=== PATIENT | male | born 1985 | race Hispanic/Latino ===

== ENCOUNTER 2020-05-05 06:23 | Emergency (ER) | payer OTHER, SELFPAY ==
[2020-05-05 06:30] VITALS: BP 164/107; PULSE 116; RESP 18; TEMP 36.6; O2SAT 99; BMI 28.0
[2020-05-05 06:31] VITALS: PULSE 111; O2SAT 99
--- NOTE | 2020-05-05 06:40 | DI.RAD.S_ITS ---
PROCEDURE: XR ANKLE LT MIN 3V INDICATIONS: Pain after injury TECHNIQUE: 3 views of the ankle were acquired. COMPARISON: [facility], , XR FOOT LT MIN 3V, 05/05/2020, 6:43. FINDINGS: Bones: No fractures or dislocations. Ankle mortise is normally aligned. No suspicious bony lesions. Soft tissues: No tibiotalar joint effusion. Achilles tendon appears normal. IMPRESSION: No visualized acute fracture or dislocation. However, if clinical concern and/or pain persist, short interval imaging followup in 7-10 days is recommended, as occult injury cannot be definitively excluded. The above findings are concordant with preliminary report. Dictated by: Emy Rincon M.D. on 05/05/2020 at 10:18 Approved by: Emy Rincon M.D. on 05/05/2020 at 10:18
--- NOTE | 2020-05-05 06:40 | DI.RAD.S_ITS ---
PROCEDURE: XR FOOT LT MIN 3V INDICATIONS: Foot pain after injury TECHNIQUE: 3 views of the foot were acquired. COMPARISON: [facility], CR, XR ANKLE LT MIN 3V, 05/05/2020, 6:43. FINDINGS: Bones: No fractures or dislocations. No suspicious bony lesions. Soft tissues: No tibiotalar joint effusion. Achilles tendon appears normal. IMPRESSION: No visualized acute fracture or dislocation. However, if clinical concern and/or pain persist, short interval imaging followup in 7-10 days is recommended, as occult injury cannot be definitively excluded. The above findings are concordant with preliminary report. Dictated by: Emy Rincon M.D. on 05/05/2020 at 10:17 Approved by: Emy Rincon M.D. on 05/05/2020 at 10:18
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
--- NOTE | 2020-05-05 07:35 | PC.NURSE ---
Patient demonstrated safe ambulation with crutches
[2020-05-05 07:42] VITALS: BP 164/87; PULSE 89; RESP 18
== END 2020-05-05 07:45 | disposition home or self-care (01) ==
PROVIDERS: Emergency Provider Emergency Medicine; Family Provider Family Medicine; PCP Family Medicine
DX: S89.92XA Unspecified injury of left lower leg, initial encounter (principal); V86.55XA Driver of 3- or 4- wheeled all-terrain vehicle (ATV) injured in nontraffic accident, initial encounter
CPT/HCPCS: 73610; 73630; 99283; 99284

== ENCOUNTER → 2020-06-07 13:32 | Outpatient (CLI) | payer OTHER, SELFPAY ==
--- NOTE | 2020-06-07 13:33 | DI.RAD.S_ITS ---
PROCEDURE: XR FOOT LT MIN 3V INDICATIONS: L lateral/ distal foot pain and swelling TECHNIQUE: 3 views of the foot were acquired. COMPARISON: [facility], CR, XR ANKLE LT MIN 3V, 05/05/2020, 6:43. [facility], CR, XR FOOT LT MIN 3V, 05/05/2020, 6:43. FINDINGS: Bones: No fractures or dislocations. No suspicious bony lesions. Incidental note is made of an accessory ossicle, an os peroneum. Soft tissues: No tibiotalar joint effusion. Achilles tendon appears normal. IMPRESSION: Negative left foot plain films. Dictated by: Boris Perez M.D. on 06/07/2020 at 12:45 Approved by: Boris Perez M.D. on 06/07/2020 at 12:45
== END ==
PROVIDERS: Family Provider Family Medicine; PCP Family Medicine; Referring Provider Family Medicine; Visit Provider Nurse Practitioner
DX: M79.672 Pain in left foot (principal)
CPT/HCPCS: 73630

== ENCOUNTER → 2021-05-20 08:57 | Outpatient (CLI) | payer OTHER, SELFPAY ==
[2021-05-20 09:32] LABS: Add Manual Diff / Slide Review NO; Basophils Absolute Auto 100 /uL (0-100); Basophils Percent Auto 1.2 % (0-2); Eosinophils Absolute Auto 100 /uL (0-450); Eosinophils Percent Auto 1.6 % (2-4); Hematocrit 41.9 % (41-53); Hemoglobin 14.1 g/dL (13.5-17.5); Lymphocytes Absolute Auto 1200 /uL (1100-4500); Lymphocytes Percent Auto 21.5 % (25-40); Mean Corpuscular HGB Conc 33.7 % (30-36); Mean Corpuscular Hemoglobin 32.2 PG (26-34); Mean Corpuscular Volume 95.5 fL (80-100); Monocytes Absolute Auto 500 /uL (0-900); Monocytes Percent Auto 8.5 % (3-14); Neutrophils Absolute Auto 3800 /uL (1500-7000); Neutrophils Percent Auto 67.2 % (50-75); Platelet Count 217 X10^3/uL (150-400); Red Blood Cell Count 4.39 X10^6/uL (4.5-5.9); Red Cell Distribution Width 13.3 % (11.6-14.8); White Blood Cell Count 5.6 X10^3/uL (4.5-11.0)
[2021-05-20 10:00] LABS: Alanine Aminotransferase 54 IU/L (<50); Albumin 4.4 g/dL (3.5-5.0); Albumin Globulin Ratio 1.7 (1.0-2.8); Alkaline Phosphatase 92 U/L (38-126); Aspartate Aminotransferase 122 IU/L (17-59); BUN Creatinine Ratio 13.1 (6-22); Bilirubin Total 1.1 mg/dL (0.2-1.3); Blood Urea Nitrogen 13 mg/dL (9-20); Calcium 9.7 mg/dL (8.4-10.2); Carbon Dioxide 27 mmol/L (22-32); Chloride 96 mmol/L (98-107); Cholesterol 262 mg/dL (140-199); Estimated Glomerular Filt Rate > 60.0 mL/min (>60); Globulin 2.6 g/dL (1.7-4.1); Glucose 128 mg/dL (70-100); HDL Cholesterol 72 mg/dL (40-60); HEMOLYSIS < 15 (0-50); Sodium 134 mmol/L (137-145); Uric Acid 9.1 mg/dL (3.5-8.5)
[2021-05-20 10:09] LABS: Triglycerides 560 mg/dL (35-150)
[2021-05-20 10:27] LABS: TSH w/ Reflex to FT4 2.41 uIU/mL (0.47-4.68)
[2021-05-20 11:26] LABS: Hemoglobin A1C% w Est Avg Glu 5.1 % (4.0-6.0)
== END ==
PROVIDERS: Family Provider Family Medicine; PCP Family Medicine; Referring Provider Family Medicine; Visit Provider Family Medicine
DX: E78.1 Pure hyperglyceridemia (principal); R53.83 Other fatigue; R73.03 Prediabetes; Z83.3 Family history of diabetes mellitus; E66.3 Overweight; I10 Essential (primary) hypertension; M10.9 Gout, unspecified; R73.01 Impaired fasting glucose
CPT/HCPCS: 36415; 80053; 80061; 83036; 84443; 84550; 85025

== ENCOUNTER → 2021-07-29 07:45 | Outpatient (CLI) | payer OTHER, SELFPAY ==
--- NOTE | 2021-07-29 07:47 | DI.RAD.S_ITS ---
PROCEDURE: XR FOOT RT MIN 3V INDICATIONS: foot injury TECHNIQUE: 3 views of the foot were acquired. COMPARISON: [facility], CR, XR FOOT LT MIN 3V, 06/07/2020, 13:24. FINDINGS: Bones: No fractures or dislocations. No suspicious bony lesions. Soft tissues: No tibiotalar joint effusion. Achilles tendon appears normal. IMPRESSION: No gross acute right foot fracture or dislocation. Dictated by: Sergio Starks M.D. on 07/29/2021 at 8:07 Approved by: Sergio Starks M.D. on 07/29/2021 at 8:08
--- NOTE | 2021-07-29 07:47 | DI.RAD.S_ITS ---
PROCEDURE: XR ANKLE RT MIN 3V INDICATIONS: foot injury TECHNIQUE: 3 views of the ankle were acquired. COMPARISON: [facility], CR, XR ANKLE LT MIN 3V, 05/05/2020, 6:43. FINDINGS: Bones: Tiny avulsion injury involving tip of medial malleolus is seen with small calcified fragment. No other fracture or dislocation is noted.. Ankle mortise is normally aligned. No suspicious bony lesions. Soft tissues: No tibiotalar joint effusion. Achilles tendon appears normal. IMPRESSION: Acute appearing tiny avulsion injury involving tip of medial malleolus. Intact ankle mortise. Dictated by: Sergio Starks M.D. on 07/29/2021 at 8:06 Approved by: Sergio Starks M.D. on 07/29/2021 at 8:07
== END ==
PROVIDERS: Family Provider Family Medicine; PCP Family Medicine; Referring Provider Nurse Practitioner Family; Visit Provider Nurse Practitioner Family
DX: S99.911A Unspecified injury of right ankle, initial encounter (principal); S99.921A Unspecified injury of right foot, initial encounter; X58.XXXA Exposure to other specified factors, initial encounter
CPT/HCPCS: 73610; 73630

== ENCOUNTER → 2021-10-22 10:45 | Outpatient (CLI) | payer OTHER, SELFPAY ==
[2021-10-22 11:09] LABS: COVID19 -Nasal RAPID Negative (Negative)
== END ==
PROVIDERS: Family Provider Family Medicine; PCP Family Medicine; Visit Provider Family Medicine
DX: Z20.822 Contact with and (suspected) exposure to COVID-19 (principal); R05.9 Cough, unspecified
CPT/HCPCS: 87635

== ENCOUNTER 2023-01-03 21:39 | Emergency (ER) | payer OTHER, SELFPAY ==
[2023-01-03 21:44] VITALS: BP 114/58; PULSE 112; RESP 16; TEMP 36.3; O2SAT 97; BMI 28.8
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
[2023-01-03 22:00] VITALS: BP 118/66; PULSE 106; O2SAT 95
[2023-01-03 22:30] VITALS: PULSE 104; O2SAT 95
--- NOTE | 2023-01-03 22:49 | DI.RAD.S_ITS ---
PROCEDURE: XR WRIST LT MIN 3V INDICATIONS: pain s/p trauma TECHNIQUE: 4 views of the wrist were acquired. COMPARISON: None. FINDINGS: Bones: Minimally displaced intra-articular fracture of the radial styloid is seen. Osseous structures are otherwise intact. No suspicious bony lesions. Scaphoid view: Intact scaphoid. Soft tissues: No suspicious soft tissue calcifications. IMPRESSION: Minimally displaced intra-articular fracture of the radial styloid. Approved by: Rafita Abarca M.D. on 01/03/2023 at 23:31
[2023-01-03 23:00] VITALS: PULSE 103; O2SAT 98
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
[2023-01-03 23:30] VITALS: PULSE 107; O2SAT 95
[2023-01-03] MEDS: HYDROCODONE/ACET 5/325 TABLET 2 TAB PO (23:37)
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
[2023-01-04] VITALS: PULSE 107; O2SAT 97
--- NOTE | 2023-01-04 00:13 | PC.NURSE ---
[place] collar placed
[2023-01-04 00:43] VITALS: PULSE 107; O2SAT 97
[2023-01-04 01:00] VITALS: PULSE 110; O2SAT 95
[2023-01-04] MEDS: HYDROMORPHONE 1 MG INJ IM (01:04)
[2023-01-04 01:30] VITALS: PULSE 110; O2SAT 95
[2023-01-04] MEDS: HYDROCODONE/ACET 5/325 PREPACK 1 BOTTLE MISC (01:30)
[2023-01-04] MEDS: ONDANSETRON 4 MG ODT PREPACK 1 BOTTLE MISC (01:30)
[2023-01-04] MEDS: ONDANSETRON 4 MG ODT SL ×2 (01:30)
[2023-01-04 01:50] VITALS: BP 118/65; PULSE 110; O2SAT 95
== END 2023-01-04 01:59 | disposition home or self-care (01) ==
PROVIDERS: Emergency Provider Emergency Medicine; Family Provider Family Medicine; PCP Family Medicine
DX: S12.9XXA Fracture of neck, unspecified, initial encounter (principal); S52.512A Displaced fracture of left radial styloid process, initial encounter for closed fracture; V29.99XA Rider (driver) (passenger) of other motorcycle injured in unspecified traffic accident, initial encounter
CPT/HCPCS: 29125; 70450; 71045; 72070; 72100; 72125; 73110; 96372; 99284; J1170

== ENCOUNTER → 2023-03-08 09:30 | Outpatient (CLI) | payer OTHER, SELFPAY ==
[2023-03-08 12:23] LABS: Hematocrit 37.6 % (41-53); Hemoglobin 13.1 g/dL (13.5-17.5); Mean Corpuscular HGB Conc 34.8 % (30-36); Mean Corpuscular Hemoglobin 32.9 PG (26-34); Mean Corpuscular Volume 94.6 fL (80-100); Platelet Count 276 X10^3/uL (150-400); Red Blood Cell Count 3.97 X10^6/uL (4.5-5.9); Red Cell Distribution Width 15.8 % (11.6-14.8); White Blood Cell Count 4.4 X10^3/uL (4.5-11.0)
[2023-03-08 13:05] LABS: Alanine Aminotransferase 43 IU/L (<50); Albumin 4.6 g/dL (3.5-5.0); Albumin Globulin Ratio 1.5 (1.0-2.8); Alkaline Phosphatase 87 U/L (38-126); Aspartate Aminotransferase 49 IU/L (17-59); Bilirubin Total 0.9 mg/dL (0.2-1.3); Blood Urea Nitrogen 13 mg/dL (9-20); Calcium 9.5 mg/dL (8.4-10.2); Carbon Dioxide 21 mmol/L (22-32); Chloride 100 mmol/L (98-107); Cholesterol 297 mg/dL (140-199); Estimated Glomerular Filt Rate > 60 mL/min (>60); Glucose 110 mg/dL (70-100); HDL Cholesterol 59 mg/dL (40-60); HEMOLYSIS < 15 (0-50); Potassium 4.2 mmol/L (3.4-5.1); Sodium 132 mmol/L (137-145); Total Protein 7.6 g/dL (6.3-8.2); Uric Acid 6.8 mg/dL (3.5-8.5)
[2023-03-08 14:12] LABS: Triglycerides 1038 mg/dL (35-150)
[2023-03-08 19:35] LABS: Creatinine Urine Random 106.5 mg/dL
[2023-03-08 19:36] LABS: Microalbumi Creatinin Ratio Ur 13.1 ug/mg CR (<30); Microalbumin Urine Random 1.4 mg/dL (0-1.6)
== END ==
PROVIDERS: Family Provider Family Medicine; PCP Family Medicine; Referring Provider Family Medicine; Visit Provider Family Medicine
DX: E78.2 Mixed hyperlipidemia (principal); I10 Essential (primary) hypertension; M10.9 Gout, unspecified; R73.9 Hyperglycemia, unspecified; R79.89 Other specified abnormal findings of blood chemistry
CPT/HCPCS: 36415; 80053; 80061; 82043; 82570; 84550; 85027

== ENCOUNTER → 2023-03-16 13:54 | Outpatient (CLI) | payer OTHER, SELFPAY ==
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
== END ==
PROVIDERS: Family Provider Family Medicine; PCP Family Medicine; Referring Provider Orthopaedic Surgery Orthopaedic Surgery of the Spine; Visit Provider Orthopaedic Surgery Orthopaedic Surgery of the Spine
DX: S52.515A Nondisplaced fracture of left radial styloid process, initial encounter for closed fracture (principal); X58.XXXA Exposure to other specified factors, initial encounter
CPT/HCPCS: 73200

== ENCOUNTER 2023-04-01 09:19 | Emergency (ER) | payer OTHER, SELFPAY ==
[2023-04-01] VITALS (11 sets, daily range): BP systolic 130–153; BP diastolic 80–93; PULSE 115–132; RESP 13–21; TEMP 36.7; O2SAT 96–100; BMI 28.8
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
--- NOTE | 2023-04-01 09:30 | DI.RAD.S_ITS ---
PROCEDURE: XR CHEST 1V INDICATIONS: chest pain TECHNIQUE: One view of the chest was acquired. COMPARISON: [facility], CR, XR CHEST 1V, 01/03/2023, 22:00. FINDINGS: Surgical changes and devices: None. Lungs and pleura: Lungs are clear. No pleural effusions or pneumothorax. Mediastinum: Mediastinal contours appear normal. Heart size is normal. Bones and chest wall: No suspicious bony lesions. Overlying soft tissues appear unremarkable. IMPRESSION: No acute cardiopulmonary abnormality. Dictated by: Sony Rosa M.D. on 04/01/2023 at 10:20 Approved by: Sony Rosa M.D. on 04/01/2023 at 10:22
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
[2023-04-01] MEDS: SODIUM CHLORIDE 0.9% 1,000 ML 1000 ML IV (09:39)
[2023-04-01 09:49] LABS: Add Manual Diff / Slide Review NO; Basophils Absolute Auto 100 /uL (0-100); Basophils Percent Auto 0.8 % (0-2); Eosinophils Absolute Auto 0 /uL (0-450); Eosinophils Percent Auto 0.4 % (2-4); Hematocrit 37.2 % (41-53); Lymphocytes Absolute Auto 1200 /uL (1100-4500); Lymphocytes Percent Auto 13.2 % (25-40); Mean Corpuscular Volume 97.3 fL (80-100); Monocytes Absolute Auto 500 /uL (0-900); Monocytes Percent Auto 5.7 % (3-14); Neutrophils Absolute Auto 7300 /uL (1500-7000); Neutrophils Percent Auto 79.9 % (50-75); Platelet Count 237 X10^3/uL (150-400); Red Blood Cell Count 3.83 X10^6/uL (4.5-5.9); Red Cell Distribution Width 15.3 % (11.6-14.8); White Blood Cell Count 9.1 X10^3/uL (4.5-11.0)
[2023-04-01 09:50] LABS: INR 0.9 (0.9-1.3); Prothrombin Time 10.1 SECONDS (10.1-12.7)
[2023-04-01 09:53] LABS: D Dimer 1557 ng/ml (<500)
[2023-04-01 09:54] LABS: Alanine Aminotransferase 33 IU/L (<50); Albumin 4.6 g/dL (3.5-5.0); Albumin Globulin Ratio 1.5 (1.0-2.8); Alkaline Phosphatase 85 U/L (38-126); Aspartate Aminotransferase 63 IU/L (17-59); BUN Creatinine Ratio 13.8 (6-22); Bilirubin Total 0.7 mg/dL (0.2-1.3); Blood Urea Nitrogen 16 mg/dL (9-20); Calcium 9.4 mg/dL (8.4-10.2); Carbon Dioxide 22 mmol/L (22-32); Chloride 101 mmol/L (98-107); Creatine Kinase 108 U/L (55-170); Estimated Glomerular Filt Rate > 60 mL/min (>60); Glucose 116 mg/dL (70-100); HEMOLYSIS < 15 (0-50); Lipase 48 U/L (23-300); Magnesium 1.5 mg/dL (1.6-2.3); PTT Partial Thromboplastin Tim 27 SECONDS (26-36); Potassium 3.8 mmol/L (3.4-5.1); Sodium 135 mmol/L (137-145); Total Protein 7.6 g/dL (6.3-8.2)
[2023-04-01 09:55] LABS: Ethanol (ETOH) < 10 mg/dL
--- NOTE | 2023-04-01 09:57 | ED_ITS ---
HPI - General Adult General Chief complaint: Syncope Stated complaint: sent by [facility],R/Leg pain/swell, blacked out T-1 fall Time Seen by Provider: 04/01/23 09:40 Source: patient Mode of arrival: Ambulatory History of Present Illness HPI narrative: 37-year-old male former smoker with history of alcohol abuse, hypertension presents at the request of the walk-in clinic for evaluation of leg pain after a fall. He started feeling shaky, dizzy and lightheaded last night and had a near syncopal episode last night. He does endorse having some alcohol at the time. he denies any significant shortness of breath but does have some retrosternal pain with a deep breath, no radiation of discomfort, no exertional symptoms and no exercise intolerance. Patient denies any runny nose, sore throat or cough. He has no fever or chills. Related Data Previous Rx's Medication Instructions Recorded amitriptyline 50 mg tablet 50 mg PO BEDTIME #90 tabs 03/12/22 lisinopril 10 mg tablet 10 mg PO DAILY #90 tabs 11/05/22 allopurinol 100 mg tablet 100 mg PO DAILY #90 tabs 03/15/23 Allergies Allergy/AdvReac Type Severity Reaction Status Date / Time cat dander [CAT DANDER] Allergy Intermediate eyes Verified 04/01/23 12:02 watery, gets itchy Review of Systems Review of Systems Narrative: GENERAL: Denies chills, fatigue, malaise, fever, sweats. HEENT: Denies sinus pain, ear pain, sore throat, difficulty swallowing, dizziness. RESPIRATORY: see HPI CARDIOVASCULAR: see HPI GASTROINTESTINAL: Denies nausea, vomiting, abdominal pain, diarrhea, constipation, melena. : Denies dysuria, frequency, incontinence, hematuria, urinary retention. MUSCULOSKELETAL: see HPI SKIN: Denies rash, skin lesions, or other NEUROLOGIC: Denies weakness, headache, numbness, change in speech, confusion, seizures, incoordination. PSYCHIATRIC: No concerning psychosocial issues. 12 point review of systems is negative except for those stated above Patient History Medical History Alcohol use disorder Anxiety (05/21/11) Elevated LFTs (~11/04/21) Gout Herpes simplex (06/02/11) Hyperlipidemia, mixed Hypertension Hypertriglyceridemia Family History Grandfather CVA (cerebral infarction) Grandmother Age: 87 Diabetes mellitus Hypertension Social History Smoking Status: Former smoker Tobacco: How many years used: 10 Smokeless tobacco user: other (Nicotine vape (current)) alcohol intake: current (6 drinks per day ) substance use type: marijuana (CBD and low THC ) Smoking Status: Former smoker alcohol intake frequency: 3 or more drinks per day Alcohol type: beer Substance Use Type: does not use Exam Narrative Exam Narrative: GENERAL: [37] year old patient appears stated age. Well-developed patient, in mild distress. HEAD: Atraumatic. Normocephalic. EYES: Pupils equal round and reactive. Extraocular motions intact. No scleral icterus. No injection or drainage. ENT: Nose without bleeding, purulent drainage. Throat without erythema, tonsillar hypertrophy or exudate. Airway patent. NECK: Trachea midline. Non tender CARDIOVASCULAR: tachycardic but regular and rhythm without murmurs, gallops, or rubs. RESPIRATORY: Clear to auscultation. Breath sounds equal bilaterally. No wheezes, rales, or rhonchi. GASTROINTESTINAL: Abdomen soft, non-tender, nondistended. EXTREMITIES: right lower extremity tender to palpate laterally, no significant swelling, redness or warmth, no lymphangitis, no induration, fluctuance, drainageNo edema or joint tenderness. BACK: Nontender without deformity or crepitance. No flank tenderness. NEURO: AOx3. SKIN: No rash or erythema of visible areas Initial Vital Signs Initial Vital Signs: Vital Signs Pulse Rate 132 H 04/01/23 09:24 Pulse Oximetry 97 04/01/23 09:24 Course Orders Ordered: ED Orders 04/01/23 09:30 XR ankle RT min 3V Stat XR chest 1V Stat XR tibia fibula RT 2V Stat 04/01/23 09:31 EKG-12 Lead Stat 04/01/23 09:35 Complete Blood Count AUTO DIFF Stat Comprehensive Metabolic Panel Stat D Dimer Stat Ethanol (ETOH) Stat Lipase Stat Magnesium Stat PTT Partial Thromboplastin Gab Stat Prothrombin Time INR Stat Troponin & CK Cardiac Panel Stat 04/01/23 10:09 CT angio chest PE protocol Stat 04/01/23 10:48 Urine Drug Screen, Rapid Stat Discontinued Medications Acetaminophen (Acetaminophen 325 Mg Tablet) 975 mg PO NOW ONE Stop: 04/01/23 10:55 Last Admin: 04/01/23 11:00 Dose: 975 mg Documented By: VINCENT Sodium Chloride (Normal Saline 0.9%) 1,000 mls @ 1,000 mls/hr IV BOLUS ONE Stop: 04/01/23 10:29 Last Infusion: 04/01/23 10:39 Dose: 0 mls/hr Documented By: Admin: 04/01/23 09:39 Dose: 1,000 mls/hr Documented By: VINCENT Vital Signs Vital signs: Vital Signs - 8 hr 04/01/23 09:27 04/01/23 09:24 04/01/23 09:25 Temperature 98.1 F Pulse Rate 130 H 132 H Respiratory Rate 16 Blood Pressure 137/81 137/81 Pulse Oximetry 99 97 Oxygen Delivery Method Room Air 04/01/23 09:25 04/01/23 09:30 04/01/23 09:30 Temperature Pulse Rate 130 H 128 H Respiratory Rate 21 21 Blood Pressure 134/81 Pulse Oximetry 97 96 Oxygen Delivery Method Room Air 04/01/23 09:45 04/01/23 09:45 04/01/23 10:00 Temperature Pulse Rate 125 H Respiratory Rate 13 Blood Pressure 130/80 135/85 Pulse Oximetry 97 Oxygen Delivery Method 04/01/23 10:00 04/01/23 10:15 04/01/23 10:15 Temperature Pulse Rate 122 H 121 H Respiratory Rate 13 Blood Pressure 135/85 Pulse Oximetry 98 99 Oxygen Delivery Method 04/01/23 10:45 04/01/23 10:45 04/01/23 11:00 Temperature Pulse Rate 123 H Respiratory Rate 20 Blood Pressure 144/90 H 144/93 H Pulse Oximetry 99 Oxygen Delivery Method 04/01/23 11:00 04/01/23 11:15 04/01/23 11:15 Temperature Pulse Rate 120 H 117 H Respiratory Rate 18 17 Blood Pressure 153/87 H Pulse Oximetry 100 100 Oxygen Delivery Method 04/01/23 11:30 04/01/23 11:30 Temperature Pulse Rate 115 H Respiratory Rate 18 Blood Pressure 139/83 Pulse Oximetry 100 Oxygen Delivery Method Room Air Medical Decision Making Lab Data 04/01/23 09:35 04/01/23 09:35 Labs: Lab Results 04/01/23 04/01/23 04/01/23 Range/Units 09:35 09:35 09:35 WBC 9.1 (4.5-11.0) X10^3/uL RBC 3.83 L (4.5-5.9) X10^6/uL Hgb 13.0 L (13.5-17.5) g/dL Hct 37.2 L (41-53) % MCV 97.3 (80-100) fL MCH 34.0 (26-34) PG MCHC 35.0 (30-36) % RDW 15.3 H (11.6-14.8) % Plt Count 237 (150-400) X10^3/uL Neut % (Auto) 79.9 H (50-75) % Lymph % (Auto) 13.2 L (25-40) % [place] % (Auto) 5.7 (3-14) % Eos % (Auto) 0.4 L (2-4) % Baso % (Auto) 0.8 (0-2) % Neut # (Auto) 7300 H (0400-4216) /uL Lymph # (Auto) 1200 (4195-4466) /uL [place] # (Auto) 500 (0-900) /uL Eos # (Auto) 0 (0-450) /uL Baso # (Auto) 100 (0-100) /uL PT 10.1 (10.1-12.7) SECONDS INR 0.9 (0.9-1.3) APTT 27 (26-36) SECONDS D-Dimer (<500) ng/ml Sodium 135 L (137-145) mmol/L Potassium 3.8 (3.4-5.1) mmol/L Chloride 101 (98-107) mmol/L Carbon Dioxide 22 (22-32) mmol/L BUN 16 (9-20) mg/dL Creatinine 1.16 (0.66-1.25) mg/dL Estimated GFR > 60 (>60) mL/min BUN/Creatinine Ratio 13.8 (6-22) Glucose 116 H (70-100) mg/dL Calcium 9.4 (8.4-10.2) mg/dL Magnesium 1.5 L (1.6-2.3) mg/dL Total Bilirubin 0.7 (0.2-1.3) mg/dL AST 63 H (17-59) IU/L ALT 33 (<50) IU/L Alkaline Phosphatase 85 (38-126) U/L Total Creatine Kinase 108 (55-170) U/L Troponin I < 0.012 (0.01-0.034) ng/mL Total Protein 7.6 (6.3-8.2) g/dL Albumin 4.6 (3.5-5.0) g/dL Globulin 3.0 (1.7-4.1) g/dL Albumin/Globulin Ratio 1.5 (1.0-2.8) Lipase 48 (23-300) U/L U Opiates 300ng/mL cut (Negative) Ur Oxycodone Screen (Negative) Urine Methadone Screen (Negative) Ur Barbiturates Screen (Negative) U Tricyclic Antidepress (Negative) Ur Phencyclidine Scrn (Negative) Ur Amphetamines Screen (Negative) U Methamphetamines Scrn (Negative) Ur MDMA Scrn (Ecstasy) (Negative) U Benzodiazepines Scrn (Negative) Urine Cocaine Screen (Negative) U Marijuana (THC) Screen (Negative) Ethyl Alcohol ( - 10) mg/dL 04/01/23 04/01/23 04/01/23 Range/Units 09:35 09:35 10:48 WBC (4.5-11.0) X10^3/uL RBC (4.5-5.9) X10^6/uL Hgb (13.5-17.5) g/dL Hct (41-53) % MCV (80-100) fL MCH (26-34) PG MCHC (30-36) % RDW (11.6-14.8) % Plt Count (150-400) X10^3/uL Neut % (Auto) (50-75) % Lymph % (Auto) (25-40) % [place] % (Auto) (3-14) % Eos % (Auto) (2-4) % Baso % (Auto) (0-2) % Neut # (Auto) (0160-6380) /uL Lymph # (Auto) (4630-0442) /uL [place] # (Auto) (0-900) /uL Eos # (Auto) (0-450) /uL Baso # (Auto) (0-100) /uL PT (10.1-12.7) SECONDS INR (0.9-1.3) APTT (26-36) SECONDS D-Dimer 1557 H (<500) ng/ml Sodium (137-145) mmol/L Potassium (3.4-5.1) mmol/L Chloride (98-107) mmol/L Carbon Dioxide (22-32) mmol/L BUN (9-20) mg/dL Creatinine (0.66-1.25) mg/dL Estimated GFR (>60) mL/min BUN/Creatinine Ratio (6-22) Glucose (70-100) mg/dL Calcium (8.4-10.2) mg/dL Magnesium (1.6-2.3) mg/dL Total Bilirubin (0.2-1.3) mg/dL AST (17-59) IU/L ALT (<50) IU/L Alkaline Phosphatase (38-126) U/L Total Creatine Kinase (55-170) U/L Troponin I (0.01-0.034) ng/mL Total Protein (6.3-8.2) g/dL Albumin (3.5-5.0) g/dL Globulin (1.7-4.1) g/dL Albumin/Globulin Ratio (1.0-2.8) Lipase (23-300) U/L U Opiates 300ng/mL cut Negative (Negative) Ur Oxycodone Screen Negative (Negative) Urine Methadone Screen Negative (Negative) Ur Barbiturates Screen Negative (Negative) U Tricyclic Antidepress Positive H (Negative) Ur Phencyclidine Scrn Negative (Negative) Ur Amphetamines Screen Negative (Negative) U Methamphetamines Scrn Negative (Negative) Ur MDMA Scrn (Ecstasy) Negative (Negative) U Benzodiazepines Scrn Negative (Negative) Urine Cocaine Screen Negative (Negative) U Marijuana (THC) Screen Negative (Negative) Ethyl Alcohol < 10 ( - 10) mg/dL Urine Dip Bedside Urine Glucose Negative Bedside Urine Bilirubin - Negative Bedside Urine Ketone +/- 5 Urine Specific [place] 1.015 Bedside Urine Occult Blood - Negative Bedside Urine pH 6.0 Bedside Urine Protein - Negative Bedside Urine Urobilinogen - Negative Bedside Urine Nitrite - Negative Point of care testing: Urine Dip Bedside Urine Glucose Negative Bedside Urine Bilirubin - Negative Bedside Urine Ketone +/- 5 Urine Specific [place] 1.015 Bedside Urine Occult Blood - Negative Bedside Urine pH 6.0 Bedside Urine Protein - Negative Bedside Urine Urobilinogen - Negative Bedside Urine Nitrite - Negative MDM Narrative Medical decision making narrative: [37] year old patient presents with pleuritic-type chest pain, near-syncope and right leg pain Multiple etiologies for patient's symptoms considered including, but not limited to: [ UTI versus cellulitis versus trauma versus sprain versus strain versus pulmonary embolism versus electrolyte abnormality versus other] Prior Charts reviewed in our EMR Primary Historian: patient Labs reviewed and interpreted by myself: no leukocytosis or left shift, D-dimer significantly elevated, primarily electrolytes, renal function and troponin all within normal Imaging reviewed: tib-fib x-ray without acute findings, CT angiogram without evidence of PE patient stated he had to leave, prior to the completion of the workup, given elevated D-dimer, negative CTA and pain and swelling right lower extremity DVT study would have been preferred, thankfully there is no evidence of a PE, pericardial effusion, patient advised of desire to complete workup, he understands the risks and benefits of his decision and demonstrates capacity to make this decision. He understands that he may return at any point without fear Re percussion Discharge Plan Departure Patient Disposition: Left Against Medical Advice Clinical Impression: Left against medical advice Prescriptions: No Action amitriptyline 50 mg tablet 50 mg PO BEDTIME Qty: 90 3RF allopurinol 100 mg tablet 100 mg PO DAILY Qty: 90 0RF lisinopril 10 mg tablet 10 mg PO DAILY Qty: 90 1RF Stand Alone Forms: Against Medical Advice
[2023-04-01 10:06] LABS: Troponin I < 0.012 ng/mL (0.01-0.034)
--- NOTE | 2023-04-01 10:09 | DI.CT.S_ITS ---
PROCEDURE: CT ANGIO CHEST PE PROTOCOL INDICATIONS: tachycardia, syncope, chest pain, SOB, critical dimer TECHNIQUE: After the administration of intravenous contrast, 2 mm thick sections acquired from the pulmonary apices to the posterior costophrenic angles. 3-dimensional maximum intensity projection (MIP) coronal and sagittal reformats were then acquired through the thorax. For radiation dose reduction, the following was used: automated exposure control, adjustment of mA and/or kV according to patient size. COMPARISON: [facility], CT, CT CERVICAL SPINE WO [facility], 01/03/2023, 22:11. FINDINGS: Image quality: Excellent. Pulmonary arteries: Pulmonary arteries are normal in size, and demonstrate no intraluminal filling defects to suggest central pulmonary embolism. Lungs and pleura: Lungs are clear. No pleural effusions or pneumothorax. Central and peripheral airways are patent. Mediastinum: Heart size is normal, without pericardial effusion. No mediastinal or hilar adenopathy. Thoracic aorta is normal in caliber and enhancement. Esophagus is normal in caliber, without hiatal hernia. Bones and chest wall: Left 1st rib fracture, (4/27), more conspicuous. C7 spinous fracture is again seen, (4/2). No suspicious bony lesions. Thyroid gland is unremarkable. No axillary or supraclavicular adenopathy. Abdomen: Visualized upper abdominal solid organs appear normal in the early arterial phase of enhancement. IMPRESSION: 1. No pulmonary embolism. 2. No acute airspace opacity. 3. Left 1st rib fracture is more conspicuous. C7 spinous process fracture is again seen. Dictated by: Sony Rosa M.D. on 04/01/2023 at 11:04 Approved by: Sony Rosa M.D. on 04/01/2023 at 11:14
[2023-04-01 10:58] LABS: UR Morphine/Opiate cutoff 300 Negative (Negative); Ur Creatinine Normal (Normal); Ur Specific Gravity Normal (Normal); Urine Amphetamines Negative (Negative); Urine Barbiturates Negative (Negative); Urine Benzodiazepines Negative (Negative); Urine Cocaine Negative (Negative); Urine MDMA Negative (Negative); Urine Methadone Negative (Negative); Urine Methamphetamines Negative (Negative); Urine Oxycodone Negative (Negative); Urine Phencyclidine Negative (Negative); Urine Tetrahydrocannabinol Negative (Negative); Urine Tricyclic Antidepressant Positive (Negative); Urine pH Normal (Normal)
[2023-04-01] MEDS: ACETAMINOPHEN 325 MG TABLET 975 MG PO (11:00)
--- NOTE | 2023-04-01 11:38 | PC.NURSE ---
Pt requesting to leave. Dr. Aguilar aware
== END 2023-04-01 11:51 | disposition left against medical advice (07) ==
PROVIDERS: Emergency Provider Emergency Medicine; Family Provider Family Medicine; PCP Family Medicine
DX: R55 Syncope and collapse (principal); R07.89 Other chest pain; M79.604 Pain in right leg; Z79.899 Other long term (current) drug therapy
CPT/HCPCS: 36415; 71045; 71275; 73590; 73610; 80053; 80305; 80320; 81003; 82550; 83690; 83735; 84484; 85025; 85379; 85610; 85730; 93005; 96360; 99284; 99285

== ENCOUNTER 2023-09-28 07:30 | Observation (INO) | payer OTHER, SELFPAY ==
[2023-09-28] VITALS (16 sets, daily range): BP systolic 111–161; BP diastolic 76–100; PULSE 101–120; RESP 12–26; TEMP 36–37.2; O2SAT 96–100; BMI 26.2
--- NOTE | 2023-09-28 07:44 | DI.RAD.S_ITS ---
PROCEDURE: XR CHEST 1V INDICATIONS: chest pain TECHNIQUE: One view of the chest was acquired. COMPARISON: [facility], CR, XR CHEST 1V, 04/01/2023, 9:44. FINDINGS: Surgical changes and devices: None. Lungs and pleura: Lungs are clear. No pleural effusions or pneumothorax. Mediastinum: Mediastinal contours appear normal. Heart size is normal. Bones and chest wall: No suspicious bony lesions. Overlying soft tissues appear unremarkable. IMPRESSION: No acute cardiopulmonary abnormality is seen. Dictated by: Romain Leung M.D. on 09/28/2023 at 8:22 Approved by: Romain Leung M.D. on 09/28/2023 at 8:27
[2023-09-28 08:01] LABS: Add Manual Diff / Slide Review NO; Basophils Absolute Auto 100 /uL (0-100); Basophils Percent Auto 0.8 % (0-2); Eosinophils Absolute Auto 100 /uL (0-450); Hematocrit 39.4 % (41-53); Lymphocytes Absolute Auto 1000 /uL (1100-4500); Lymphocytes Percent Auto 9.2 % (25-40); Mean Corpuscular HGB Conc 35.6 % (30-36); Mean Corpuscular Volume 95.4 fL (80-100); Monocytes Absolute Auto 900 /uL (0-900); Neutrophils Absolute Auto 8300 /uL (1500-7000); Platelet Count 194 X10^3/uL (150-400); Red Blood Cell Count 4.13 X10^6/uL (4.5-5.9); Red Cell Distribution Width 13.4 % (11.6-14.8); White Blood Cell Count 10.4 X10^3/uL (4.5-11.0)
[2023-09-28 08:07] LABS: INR 0.9 (0.9-1.3); Prothrombin Time 10.3 SECONDS (9.4-12.5)
--- NOTE | 2023-09-28 08:08 | ED_ITS ---
HPI - Chest Pain General Chief Complaint: Chest Pain Stated Complaint: upper abd/left side/back pain Time Seen by Provider: 09/28/23 07:52 Source: patient Mode of arrival: Ambulatory Limitations: no limitations History of Present Illness HPI narrative: Patient 38-year-old male history of gout, hypertension presenting today with left-sided abdominal pain ongoing for the last couple of days. He has had significant decreased intake some mild nausea. It does hurt when he moves. He was able to eat a bagel this morning. Currently tachycardic but denies any chest pain or palpitations. He admits to drinking alcohol couple glasses of whiskey nightly. Denies any prior history of withdrawal. He denies any right upper quadrant pain. Related Data Previous Rx's Medication Instructions Recorded prednisone 20 mg tablet 20 mg PO DAILY #15 tabs 07/05/23 amitriptyline 50 mg tablet 50 mg PO ONCE PM #90 tabs 08/03/23 lisinopril 10 mg tablet 10 mg PO DAILY #90 tabs 08/03/23 allopurinol 100 mg tablet 100 mg PO DAILY #90 tabs 09/19/23 colchicine 0.6 mg tablet 0.6 mg PO DAILY #20 tabs 09/19/23 Allergies Allergy/AdvReac Type Severity Reaction Status Date / Time cat dander [CAT DANDER] Allergy Intermediate eyes Verified 04/01/23 12:02 watery, gets itchy Patient History Medical History Elevated LFTs (~11/04/21) Hyperlipidemia, mixed Alcohol use disorder Hypertension Gout Herpes simplex (06/02/11) Hypertriglyceridemia Anxiety (05/21/11) Family History Grandfather CVA (cerebral infarction) Grandmother Age: 87 Diabetes mellitus Hypertension Social History Smoking Status: Former smoker Tobacco: How many years used: 10 Smokeless tobacco user: other (Nicotine vape (current)) alcohol intake: current (6 drinks per day ) substance use type: marijuana (CBD and low THC ) Smoking Status: Former smoker alcohol intake frequency: 3 or more drinks per day Alcohol type: beer Substance Use Type: does not use Exam Initial Vital Signs Initial Vital Signs: Vital Signs Temperature 99 F 09/28/23 07:36 Pulse Rate 120 H 09/28/23 07:36 Respiratory Rate 20 09/28/23 07:36 Blood Pressure 111/80 09/28/23 07:36 Pulse Oximetry 99 09/28/23 07:36 Oxygen Delivery Method Room Air 09/28/23 07:36 GENERAL: Alert 38-year-old male appears mildly uncomfortable and in no acute distress. HEENT: Head atraumatic,EOMI, pupils reactive, face symmetric, moist mucous membranes CARDIOVASCULAR: Regular rate and rhythm without murmurs, rubs or gallops. RESPIRATORY: Breath sounds equal bilaterally, no wheezes rales or rhonchi. ABDOMEN: Soft, minor epigastric pain negative right upper quadrant pain is tender over on the left side EXTREMITIES: Normal range of motion, no clubbing or edema. Neurovascularly intact NEUROLOGICAL: Alert and oriented x4.Normal gait and speech. SKIN: Warm, dry, no laceration, no petechiae, no rashes or lesions. Course Orders Ordered: ED Orders 09/28/23 07:44 XR chest 1V Stat EKG-12 Lead Stat 09/28/23 07:53 Complete Blood Count AUTO DIFF Stat Comprehensive Metabolic Panel Stat Lipase Stat Magnesium Stat PTT Partial Thromboplastin Gab Stat Prothrombin Time INR Stat Troponin & CK Cardiac Panel Stat 09/28/23 08:47 US abdomen limited Stat 09/28/23 11:34 CT abdomen pelvis w con Stat Acetaminophen (Acetaminophen 325 Mg Tablet) 650 mg PO Q6H PRN PRN Reason: Fever/Mild Pain (1-3) Heparin Sodium (Porcine) (Heparin 5,000 Unit/Ml Vial) 5,000 unit SUBCUT BID ALEXEI Hydromorphone HCl (Hydromorphone 0.5 Mg Inj) 0.5 mg IV Q2H PRN PRN Reason: Pain, Severe (7-10) Last Admin: 09/28/23 13:36 Dose: 0.5 mg Documented By: OW Dextrose/Sodium Chloride (Dextrose 5%-0.45% Ns) 1,000 mls @ 100 mls/hr IV CONT ALEXEI POTASSIUM CHLORIDE IN WATER (Potassium Cl 10 Meq/100 Ml Hien) 10 meq in 100 mls @ 100 mls/hr IV Q1H ALEXEI Stop: 09/28/23 17:29 Naloxone HCl (Naloxone 0.4 Mg/Ml Vial) 0.2 mg IV Q2MIN PRN PRN Reason: Opiate Reversal Naloxone HCl (Naloxone 0.4 Mg/Ml Vial) 0.2 mg IV Q2MIN PRN PRN Reason: Opiate Reversal Ondansetron HCl (Ondansetron 4 Mg/2 Ml Inj) 4 mg IV Q8HR PRN PRN Reason: Nausea And Vomiting Last Admin: 09/28/23 13:36 Dose: 4 mg Documented By: OW Discontinued Medications Aspirin (Aspirin 81 Mg Chew Tab) 324 mg PO NOW ONE Stop: 09/28/23 07:45 Last Admin: 09/28/23 08:57 Dose: Not Given Documented By: CTS Hydromorphone HCl (Hydromorphone 1 Mg Inj) 1 mg IV NOW ONE Stop: 09/28/23 10:54 Last Admin: 09/28/23 11:16 Dose: 1 mg Documented By: CTS Sodium Chloride (Normal Saline 0.9%) 1,000 mls @ 1,000 mls/hr IV BOLUS ONE Stop: 09/28/23 09:46 Last Infusion: 09/28/23 10:35 Dose: Infused Documented By: Admin: 09/28/23 09:02 Dose: 1,000 mls/hr Documented By: CTS Sodium Chloride (Normal Saline 0.9%) 1,000 mls @ 1,000 mls/hr IV BOLUS ONE Stop: 09/28/23 11:52 Last Infusion: 09/28/23 12:21 Dose: Infused Documented By: Admin: 09/28/23 11:16 Dose: 1,000 mls/hr Documented By: CTS Ketorolac Tromethamine (Ketorolac 30 Mg/Ml Vial) 15 mg IV NOW ONE Stop: 09/28/23 08:44 Last Admin: 09/28/23 09:02 Dose: 15 mg Documented By: CTS Morphine Sulfate (Morphine 4 Mg/Ml Inj) 4 mg IV NOW ONE Stop: 09/28/23 08:52 Last Admin: 09/28/23 09:02 Dose: 4 mg Documented By: CTS Ondansetron HCl (Ondansetron 4 Mg/2 Ml Inj) 4 mg IV NOW ONE Stop: 09/28/23 08:48 Last Admin: 09/28/23 09:02 Dose: 4 mg Documented By: CTS Pantoprazole Sodium (Pantoprazole 40 Mg Vial) 40 mg IV NOW ONE Stop: 09/28/23 08:44 Last Admin: 09/28/23 09:02 Dose: 40 mg Documented By: CTS Vital Signs Vital signs: Vital Signs - 8 hr 09/28/23 07:36 09/28/23 07:51 09/28/23 07:51 Temperature 99 F Pulse Rate 120 H 115 H Respiratory Rate 20 Blood Pressure 111/80 142/87 H Pulse Oximetry 99 96 Oxygen Delivery Method Room Air 09/28/23 07:54 09/28/23 07:54 09/28/23 08:00 Temperature Pulse Rate 113 H Respiratory Rate 26 H Blood Pressure 132/83 129/84 Pulse Oximetry 98 Oxygen Delivery Method 09/28/23 08:00 09/28/23 08:30 09/28/23 08:30 Temperature Pulse Rate 112 H 111 H Respiratory Rate 19 16 Blood Pressure 126/90 Pulse Oximetry 98 98 Oxygen Delivery Method 09/28/23 09:00 09/28/23 09:00 09/28/23 09:30 Temperature Pulse Rate 111 H Respiratory Rate 14 Blood Pressure 128/87 125/84 Pulse Oximetry 100 Oxygen Delivery Method 09/28/23 09:30 09/28/23 10:00 09/28/23 10:00 Temperature Pulse Rate 104 H 103 H Respiratory Rate 24 22 Blood Pressure 111/82 Pulse Oximetry 100 100 Oxygen Delivery Method 09/28/23 10:30 09/28/23 10:30 09/28/23 11:00 Temperature Pulse Rate 104 H 104 H Respiratory Rate 15 16 Blood Pressure 138/82 135/89 Pulse Oximetry 99 100 Oxygen Delivery Method Room Air 09/28/23 11:30 09/28/23 12:08 09/28/23 13:00 Temperature Pulse Rate 106 H 106 H 110 H Respiratory Rate 12 12 13 Blood Pressure 125/76 127/84 Pulse Oximetry 100 99 99 Oxygen Delivery Method Room Air Room Air Room Air MDM - Chest Pain Lab Data 09/28/23 07:53 09/28/23 07:53 Labs: Lab Results 09/28/23 Range/Units 07:53 WBC 10.4 (4.5-11.0) X10^3/uL RBC 4.13 L (4.5-5.9) X10^6/uL Hgb 14.0 (13.5-17.5) g/dL Hct 39.4 L (41-53) % MCV 95.4 (80-100) fL MCH 34.0 (26-34) PG MCHC 35.6 (30-36) % RDW 13.4 (11.6-14.8) % Plt Count 194 (150-400) X10^3/uL Neut % (Auto) 80.0 H (50-75) % Lymph % (Auto) 9.2 L (25-40) % [place] % (Auto) 9.0 (3-14) % Eos % (Auto) 1.0 L (2-4) % Baso % (Auto) 0.8 (0-2) % Neut # (Auto) 8300 H (6147-1393) /uL Lymph # (Auto) 1000 L (9546-1504) /uL [place] # (Auto) 900 (0-900) /uL Eos # (Auto) 100 (0-450) /uL Baso # (Auto) 100 (0-100) /uL PT 10.3 (9.4-12.5) SECONDS INR 0.9 (0.9-1.3) APTT 29 (25.1-36.5) SECONDS Sodium 132 L (137-145) mmol/L Potassium 3.2 L (3.4-5.1) mmol/L Chloride 91 L (98-107) mmol/L Carbon Dioxide 27 (22-32) mmol/L BUN 12 (9-20) mg/dL Creatinine 1.08 (0.66-1.25) mg/dL Estimated GFR > 60 (>60) mL/min BUN/Creatinine Ratio 11.1 (6-22) Glucose 128 H (70-100) mg/dL Calcium 9.4 (8.4-10.2) mg/dL Magnesium 1.6 (1.6-2.3) mg/dL Total Bilirubin 1.7 H (0.2-1.3) mg/dL AST 87 H (17-59) IU/L ALT 38 (<50) IU/L Alkaline Phosphatase 79 (38-126) U/L Total Creatine Kinase 113 (55-170) U/L Troponin I < 0.012 (0.01-0.034) ng/mL Total Protein 8.1 (6.3-8.2) g/dL Albumin 4.6 (3.5-5.0) g/dL Globulin 3.5 (1.7-4.1) g/dL Albumin/Globulin Ratio 1.3 (1.0-2.8) Lipase 4187 H (23-300) U/L Imaging Data US - abdomen: Radiologist's Impression: ROCEDURE: US ABDOMEN LIMITED INDICATIONS: PANCREATITIS TECHNIQUE: Real-time scanning was performed of the abdominal and retroperitoneal organs, with image documentation. COMPARISON: None. FINDINGS: Liver: Liver is normal in size and demonstrates increased echotexture. There is a 0.6 cm diameter cyst in the left hepatic lobe. Gallbladder: No gallstones. No gallbladder wall thickening, pericholecystic fluid or sonographic Valdivia's sign. Biliary ducts: Intrahepatic bile ducts are non-dilated. Extrahepatic bile duct caliber measures 2.8 mm. Normal is 6-7 mm or less in diameter, or 10 mm or less post-cholecystectomy. Pancreas: Visualized portions of the pancreas are sonographically normal. Miscellaneous: No free abdominal fluid. IMPRESSION: 1. Normal ultrasound appearance of pancreas, which does not exclude pancreatitis. 2. Normal gallbladder. No gallstones. 3. A small hepatic cyst. Dictated by: Romain Leung M.D. on 09/28/2023 at 9:53 CT scan - abdomen/pelvis: Radiologist's Impression: PROCEDURE: CT ABDOMEN PELVIS W CON INDICATIONS: pancreatitis TECHNIQUE: After the administration of intravenous contrast, axial sections acquired from the lung bases to the pubic symphysis. Coronal and sagittal reformats were performed. For radiation dose reduction, the following was used: automated exposure control, adjustment of mA and/or kV according to patient size. COMPARISON: None. FINDINGS: Image quality: Diagnostic. Lower Chest: No significant findings. ABDOMEN: Liver: No solid mass. Gallbladder: No radiopaque gallstones or wall thickening. Biliary ducts: No biliary dilation. Pancreas: No ductal dilation. There is moderate fat stranding surrounding the pancreatic tail. There is a 24 mm region of hypodensity within the superior aspect of the pancreatic tail. Spleen: Size is within normal limits. Adrenal Glands: No adrenal nodules. Kidneys and Ureters: No hydronephrosis. No solid mass. No complex renal cystic lesion which requires follow up. Stomach and Bowel: Stomach and small bowel are within normal limits. Appendix is normal. Colon is nondistended. There is thickening of the splenic flexure of colon as well as the descending colon. Peritoneum: Small amount of fluid within the left anterior para renal space. No free air. Ventral Wall: No significant ventral hernia. Abdominal Nodes: No retroperitoneal or mesenteric adenopathy by size criteria. Vessels: Aorta and inferior vena cava are normal in size. PELVIS: Pelvic Organs: Unremarkable. Bladder: No bladder wall thickening, accounting for underdistention. Pelvic Nodes: No enlarged lymph nodes. Miscellaneous: No inguinal hernias are seen. Bones: No aggressive osseous abnormality. IMPRESSION: 1. Pancreatitis. 2. Possible pancreatic tail mass. Further assessment with nonemergent outpatient follow-up pancreas protocol MRI is recommended for further assessment. 3. Thickening of the left colon, which may be secondary to pancreatitis, with differential considerations also include ischemia, infection, inflammation. Follow-up colonoscopy is recommended to exclude underlying neoplasm. 4. Normal appendix. Dictated by: Bran Jeffers M.D. on 09/28/2023 at 12:42 MDM Narrative Medical decision making narrative: Patient 38-year-old male who presents with left upper abdominal pain. Some nausea no actual vomiting. He remains persistently tachycardic. Blood work reviewed does show pancreatitis with a lipase of 4180, bilirubin minimally elevated at 1.7, AST 87, ALT 38 potassium 3.2 creatinine 1.0 Imaging reviewed ultrasound does not show any cholelithiasis or dilated common bile duct, CT does show acute pancreatitis with questionable pancreatic tail mass Patient received IV fluids pain medications nausea medications still tachycardic and requiring pain meds. Sounds as though he does drink whiskey daily has never gone through DTs before not actively shaking or anxious but may be starting to go through withdrawal. Suspect pancreatitis secondary to alcohol use no evidence of cholelithiasis. Dr. Meraz updated on patient's symptoms and test results accepts patient Discharge Plan Departure Patient Disposition: Admitted As Inpatient Clinical Impression: Acute pancreatitis Admit Date/Time: 09/28/23 13:08 Admit Provider: Ayush Meraz
[2023-09-28 08:10] LABS: PTT Partial Thromboplastin Tim 29 SECONDS (25.1-36.5)
[2023-09-28 08:11] LABS: Alanine Aminotransferase 38 IU/L (<50); Albumin 4.6 g/dL (3.5-5.0); Albumin Globulin Ratio 1.3 (1.0-2.8); Alkaline Phosphatase 79 U/L (38-126); Aspartate Aminotransferase 87 IU/L (17-59); BUN Creatinine Ratio 11.1 (6-22); Bilirubin Total 1.7 mg/dL (0.2-1.3); Blood Urea Nitrogen 12 mg/dL (9-20); Calcium 9.4 mg/dL (8.4-10.2); Carbon Dioxide 27 mmol/L (22-32); Chloride 91 mmol/L (98-107); Creatine Kinase 113 U/L (55-170); Estimated Glomerular Filt Rate > 60 mL/min (>60); Globulin 3.5 g/dL (1.7-4.1); Glucose 128 mg/dL (70-100); HEMOLYSIS < 15 (0-50); Magnesium 1.6 mg/dL (1.6-2.3); Potassium 3.2 mmol/L (3.4-5.1); Sodium 132 mmol/L (137-145); Total Protein 8.1 g/dL (6.3-8.2)
[2023-09-28 08:23] LABS: Troponin I < 0.012 ng/mL (0.01-0.034)
[2023-09-28 08:32] LABS: Lipase 4187 U/L (23-300)
--- NOTE | 2023-09-28 08:47 | DI.US.S_ITS ---
PROCEDURE: US ABDOMEN LIMITED INDICATIONS: PANCREATITIS TECHNIQUE: Real-time scanning was performed of the abdominal and retroperitoneal organs, with image documentation. COMPARISON: None. FINDINGS: Liver: Liver is normal in size and demonstrates increased echotexture. There is a 0.6 cm diameter cyst in the left hepatic lobe. Gallbladder: No gallstones. No gallbladder wall thickening, pericholecystic fluid or sonographic Valdivia's sign. Biliary ducts: Intrahepatic bile ducts are non-dilated. Extrahepatic bile duct caliber measures 2.8 mm. Normal is 6-7 mm or less in diameter, or 10 mm or less post-cholecystectomy. Pancreas: Visualized portions of the pancreas are sonographically normal. Miscellaneous: No free abdominal fluid. IMPRESSION: 1. Normal ultrasound appearance of pancreas, which does not exclude pancreatitis. 2. Normal gallbladder. No gallstones. 3. A small hepatic cyst. Dictated by: Romain Leung M.D. on 09/28/2023 at 9:53 Approved by: Romain Leung M.D. on 09/28/2023 at 9:55
[2023-09-28] MEDS: KETOROLAC 30 MG/ML VIAL 15 MG IV (09:02)
[2023-09-28] MEDS: SODIUM CHLORIDE 0.9% 1,000 ML 1000 ML IV ×2 (09:02→11:16)
[2023-09-28] MEDS: MORPHINE 4 MG/ML INJ IV (09:02)
[2023-09-28] MEDS: PANTOPRAZOLE 40 MG VIAL IV (09:02)
[2023-09-28] MEDS: ONDANSETRON 4 MG/2 ML INJ IV ×2 (09:02→13:36)
[2023-09-28] MEDS: HYDROMORPHONE 1 MG INJ IV (11:16)
--- NOTE | 2023-09-28 11:34 | DI.CT.S_ITS ---
PROCEDURE: CT ABDOMEN PELVIS W CON INDICATIONS: pancreatitis TECHNIQUE: After the administration of intravenous contrast, axial sections acquired from the lung bases to the pubic symphysis. Coronal and sagittal reformats were performed. For radiation dose reduction, the following was used: automated exposure control, adjustment of mA and/or kV according to patient size. COMPARISON: None. FINDINGS: Image quality: Diagnostic. Lower Chest: No significant findings. ABDOMEN: Liver: No solid mass. Gallbladder: No radiopaque gallstones or wall thickening. Biliary ducts: No biliary dilation. Pancreas: No ductal dilation. There is moderate fat stranding surrounding the pancreatic tail. There is a 24 mm region of hypodensity within the superior aspect of the pancreatic tail. Spleen: Size is within normal limits. Adrenal Glands: No adrenal nodules. Kidneys and Ureters: No hydronephrosis. No solid mass. No complex renal cystic lesion which requires follow up. Stomach and Bowel: Stomach and small bowel are within normal limits. Appendix is normal. Colon is nondistended. There is thickening of the splenic flexure of colon as well as the descending colon. Peritoneum: Small amount of fluid within the left anterior para renal space. No free air. Ventral Wall: No significant ventral hernia. Abdominal Nodes: No retroperitoneal or mesenteric adenopathy by size criteria. Vessels: Aorta and inferior vena cava are normal in size. PELVIS: Pelvic Organs: Unremarkable. Bladder: No bladder wall thickening, accounting for underdistention. Pelvic Nodes: No enlarged lymph nodes. Miscellaneous: No inguinal hernias are seen. Bones: No aggressive osseous abnormality. IMPRESSION: 1. Pancreatitis. 2. Possible pancreatic tail mass. Further assessment with nonemergent outpatient follow-up pancreas protocol MRI is recommended for further assessment. 3. Thickening of the left colon, which may be secondary to pancreatitis, with differential considerations also include ischemia, infection, inflammation. Follow-up colonoscopy is recommended to exclude underlying neoplasm. 4. Normal appendix. Dictated by: Bran Jeffers M.D. on 09/28/2023 at 12:42 Approved by: Bran Jeffers M.D. on 09/28/2023 at 12:46
--- NOTE | 2023-09-28 13:16 | PM.HP.1 ---
History of Present Illness History of Present Illness Date Patient Seen: 09/28/23 Chief complaint: upper abd/left side/back pain Narrative: The patient is a 38-year-old male with a history of gout, hypertension, and alcohol abuse who presented to the ED with left-sided abdominal pain today. This has been ongoing for 2-3 days and increasing. He notes that he has had some nausea as well. The pain does seem to increase with positional movements. He would did have something to eat this morning and denies acute exacerbation of the pain. He does drink 2-3 glasses of whiskey at night. He denied any history of alcohol withdrawal symptoms to the emergency physician. In the emergency department his lipase was elevated and there was a concern for pancreatitis. He denies recent diarrhea, or blood per rectum. He has no history of pancreatitis. He was noted to be tachycardic, but normotensive and afebrile in the emergency department. He adds that this has really been going on since about Tuesday or 3-1/2 days. He notes his last drink was probably on Tuesday. He denies a history of shakes or other severe withdrawal symptoms. He drinks 2 or 3 whiskeys a day. He does take routine hypertension medications. He denies any hematemesis, diarrhea or blood per rectum. The pain is most noticeable in the left upper quadrant and radiating to the back. CT scan is consistent with pancreatitis, no necrosis or fluid collections are noted. He does have some inflammation around the left descending colon which may explain his left upper quadrant pain. FORMERLY [facility], [facility]–1983 Medical History Elevated LFTs (~11/04/21) Hyperlipidemia, mixed Alcohol use disorder Hypertension Gout Herpes simplex (06/02/11) Hypertriglyceridemia Anxiety (05/21/11) Family History Grandfather CVA (cerebral infarction) Grandmother Age: 87 Diabetes mellitus Hypertension Social History household members: family Smoking Status: Former smoker Tobacco: How many years used: 10 Smokeless tobacco user: other (Nicotine vape (current)) alcohol intake: current substance use type: marijuana (CBD and low THC ) Meds Home Medications and Allergies Home Medications Medication Instructions Recorded Confirmed Type prednisone 20 mg tablet 20 mg PO DAILY #15 tabs 07/05/23 09/28/23 Rx amitriptyline 50 mg tablet 50 mg PO ONCE PM #90 tabs 08/03/23 09/28/23 Rx lisinopril 10 mg tablet 10 mg PO DAILY #90 tabs 08/03/23 09/28/23 Rx allopurinol 100 mg tablet 100 mg PO DAILY #90 tabs 09/19/23 09/28/23 Rx colchicine 0.6 mg tablet 0.6 mg PO DAILY #20 tabs 09/19/23 09/28/23 Rx Allergies Allergy/AdvReac Type Severity Reaction Status Date / Time cat dander [CAT DANDER] Allergy Intermediate eyes Verified 04/01/23 12:02 watery, gets itchy Review of Systems Review of Systems Narrative: All else unremarkable except as noted in the history and physical. Exam Vital Signs (past 8 hours): - 09/28/23 07:36 09/28/23 07:51 09/28/23 07:51 Temperature 99 F Pulse Rate 120 H 115 H Respiratory Rate 20 Blood Pressure 111/80 142/87 H Pulse Oximetry 99 96 Oxygen Delivery Method Room Air 09/28/23 07:54 09/28/23 07:54 09/28/23 08:00 Temperature Pulse Rate 113 H Respiratory Rate 26 H Blood Pressure 132/83 129/84 Pulse Oximetry 98 Oxygen Delivery Method 09/28/23 08:00 09/28/23 08:30 09/28/23 08:30 Temperature Pulse Rate 112 H 111 H Respiratory Rate 19 16 Blood Pressure 126/90 Pulse Oximetry 98 98 Oxygen Delivery Method 09/28/23 09:00 09/28/23 09:00 09/28/23 09:30 Temperature Pulse Rate 111 H Respiratory Rate 14 Blood Pressure 128/87 125/84 Pulse Oximetry 100 Oxygen Delivery Method 09/28/23 09:30 09/28/23 10:00 09/28/23 10:00 Temperature Pulse Rate 104 H 103 H Respiratory Rate 24 22 Blood Pressure 111/82 Pulse Oximetry 100 100 Oxygen Delivery Method 09/28/23 10:30 09/28/23 10:30 Temperature Pulse Rate 104 H Respiratory Rate 15 Blood Pressure 138/82 Pulse Oximetry 99 Oxygen Delivery Method Oxygen Delivery Method Room Air Narrative Exam Narrative: Objective Imaging CT scan - abdomen: Radiologist's impression: 1. Pancreatitis. 2. Possible pancreatic tail mass. Further assessment with nonemergent outpatient follow-up pancreas protocol MRI is recommended for further assessment. 3. Thickening of the left colon, which may be secondary to pancreatitis, with differential considerations also include ischemia, infection, inflammation. Follow-up colonoscopy is recommended to exclude underlying neoplasm. 4. Normal appendix. US - abdomen: Radiologist's impression: 1. Normal ultrasound appearance of pancreas, which does not exclude pancreatitis. 2. Normal gallbladder. No gallstones. 3. A small hepatic cyst. Chest x-ray: Radiologist's impression: No acute cardiopulmonary abnormality is seen. Labs 09/28/23 07:53 09/28/23 07:53 Labs: Laboratory Results - last 24 hr 09/28/23 07:53 WBC 10.4 RBC 4.13 L Hgb 14.0 Hct 39.4 L MCV 95.4 MCH 34.0 MCHC 35.6 RDW 13.4 Plt Count 194 Neut % (Auto) 80.0 H Lymph % (Auto) 9.2 L [place]abella % (Auto) 9.0 Eos % (Auto) 1.0 L Baso % (Auto) 0.8 Neut # (Auto) 8300 H Lymph # (Auto) 1000 L Isabella # (Auto) 900 Eos # (Auto) 100 Baso # (Auto) 100 PT 10.3 INR 0.9 APTT 29 Sodium 132 L Potassium 3.2 L Chloride 91 L Carbon Dioxide 27 BUN 12 Creatinine 1.08 Estimated GFR > 60 BUN/Creatinine Ratio 11.1 Glucose 128 H Calcium 9.4 Magnesium 1.6 Total Bilirubin 1.7 H AST 87 H ALT 38 Alkaline Phosphatase 79 Total Creatine Kinase 113 Troponin I < 0.012 Total Protein 8.1 Albumin 4.6 Globulin 3.5 Albumin/Globulin Ratio 1.3 Lipase 4187 H Assessment & Plan Assessment & Plan narrative: 1. Pancreatitis (likely alcohol induced), present on admission and active. -NPO, IV fluids, analgesia. -likely related to alcohol ingestion, we will check triglycerides. -confirmed by CT scan. 2. Alcohol use disorder, present on admission and active. -[facility] protocol for possible withdrawal symptoms, thiamine. 3. Hypokalemia, present on admission and active. -replete and follow. 4. Hypovolemic hyponatremia, present on admission and active. -replete and follow. 5. Essential hypertension, present on admission and active. -resume lisinopril. Time Spent With Patient Time with patient: 30 to 49 minutes with 50% spent counseling/coordinating care Quality MIPS - Admit I confirm the patient?s Advance Care Plan is present, Code status is documented, Surrogate decision maker is in patient?s record [If Yes, STOP here]: Yes MIPS - Meds 'Current medications' to include all prescriptions, [id number] products, herbals, cannabis/cannabidiol products, and vitamin/mineral/dietary (nutritional) supplements. I have utilized all available resources to obtain, update, or review the patient?s current medications. [If Yes, STOP here]: Yes
[2023-09-28] MEDS: HYDROMORPHONE 0.5 MG INJ IV ×5 (13:36→22:18)
[2023-09-28] MEDS: DEXTROSE 5%-0.45% NS 1,000 ML 100 ML IV (14:55)
[2023-09-28] MEDS: POTASSIUM CHLORIDE IN WATER 10 MEQ/100 ML PIGGYBACK 100 MEQ IV ×4 (14:56→18:56)
[2023-09-28] MEDS: HEPARIN 5,000 UNIT/ML VIAL 5000 UNIT SUBCUT ×2 (14:56→20:12)
[2023-09-28 15:49] LABS: Cholesterol 301 mg/dL (140-199); HDL Cholesterol 72 mg/dL (40-60); LDL Cholesterol Calculated 168 mg/dL (<100); Triglycerides 307 mg/dL (35-150)
--- NOTE | 2023-09-28 17:27 | DIET.CONS ---
Dietary Consultation Note Admission Date: 09/28/2023 13:08 Assessment: 38M admitted with pancreatitis. RD consulted due to unintentional weight loss. Reports 10# loss after having the flu 1-2 months ago. Reports poor PO over one week due to this. After having the flu, reports an episode of gout that motivated him to change his diet. With lower kcal intake (more fish/chx/veggies/fruit) he was sustaining lower weight of 180-185#. UBW 190-195#. No signs of wasting present. Elevated AST of 87. Elevated TG 307 (though much lower than previous 1038). Diet recall indicates three meals per day with protein, rice, and veggies. Limited snacks. Excessive ETOH intake with 3 high ball glasses with ice. States though he does have three per night he does not experience withdrawal if stopped. Reports poor PO since Tuesday as well due to vomiting and left side ab pain. Ht: 175.26 cm Wt: 80.739 kg BMI: 26.2 Last BM: 09/27/23 (09/28/23 13:59) MNA: 11 Josiah Score: 23 Diet: 09/28/23 13:15 NPO Diet Diet Modifications: NPO Type: NPO except for Ice Chips Labs: RBC 4.13 X10^6/uL (4.5-5.9) L 09/28/23 07:53 Hgb 14.0 g/dL (13.5-17.5) 09/28/23 07:53 Hct 39.4 % (41-53) L 09/28/23 07:53 Creatinine 1.08 mg/dL (0.66-1.25) 09/28/23 07:53 Nutrition Diagnosis: Excessive ETOH intake r/t stage of change pre contemplative aeb pt report, elevated AST, pacreatitis presentation Interventions: Encouraged 2 or less servings of ETOH per day Discussed potential ETOH intake impact on AST and overall liver health Discussed other nutrition impacts on liver health Monitoring/Evaluations: consult prn Electronically Signed by: Rocío Lamb 09/28/23 17:27 Clinical Dietitian [address] [address]
[2023-09-28] MEDS: ACETAMINOPHEN 325 MG TABLET 650 MG PO (17:35)
[2023-09-28] MEDS: AMITRIPTYLINE 25 MG TABLET 50 MG PO (18:20)
[2023-09-29] VITALS (7 sets, daily range): BP systolic 124–146; BP diastolic 85–103; PULSE 105–117; RESP 16–20; TEMP 35.8–37.1; O2SAT 95–99
[2023-09-29] MEDS: HYDROMORPHONE 0.5 MG INJ IV ×11 (00:42→21:52)
[2023-09-29] MEDS: SIMETHICONE 80 MG TABLET PO (02:34)
[2023-09-29] MEDS: DEXTROSE 5%-0.45% NS 1,000 ML 100 ML IV ×2 (05:17→15:05)
[2023-09-29 05:18] LABS: Add Manual Diff / Slide Review NO; Basophils Absolute Auto 0 /uL (0-100); Basophils Percent Auto 0.3 % (0-2); Eosinophils Absolute Auto 200 /uL (0-450); Eosinophils Percent Auto 1.6 % (2-4); Hematocrit 34.2 % (41-53); Lymphocytes Absolute Auto 700 /uL (1100-4500); Lymphocytes Percent Auto 7.3 % (25-40); Mean Corpuscular HGB Conc 35.2 % (30-36); Mean Corpuscular Volume 96.6 fL (80-100); Monocytes Absolute Auto 700 /uL (0-900); Monocytes Percent Auto 7.3 % (3-14); Neutrophils Absolute Auto 7900 /uL (1500-7000); Neutrophils Percent Auto 83.5 % (50-75); Platelet Count 160 X10^3/uL (150-400); Red Blood Cell Count 3.54 X10^6/uL (4.5-5.9); Red Cell Distribution Width 13.3 % (11.6-14.8); White Blood Cell Count 9.4 X10^3/uL (4.5-11.0)
[2023-09-29 05:30] LABS: BUN Creatinine Ratio 7.1 (6-22); Blood Urea Nitrogen 5 mg/dL (9-20); Calcium 8.9 mg/dL (8.4-10.2); Carbon Dioxide 26 mmol/L (22-32); Chloride 94 mmol/L (98-107); Estimated Glomerular Filt Rate > 60 mL/min (>60); Glucose 125 mg/dL (70-100); HEMOLYSIS < 15 (0-50); Potassium 3.6 mmol/L (3.4-5.1); Sodium 131 mmol/L (137-145)
--- NOTE | 2023-09-29 08:08 | PM.PN.1 ---
Subjective Subjective Interval history: He is still having left upper quadrant and flank pain. No nausea. Minimal flatus and no BM since Tuesday. No withdrawal symptoms. Exam Vital Signs (past 8 hours): - 09/29/23 04:00 Temperature 96.7 F L Pulse Rate 108 H Respiratory Rate 16 Blood Pressure 132/93 H Pulse Oximetry 97 Oxygen Flow Rate 0 Oxygen Delivery Method Room Air Oxygen Flow Rate 0 Narrative Exam Narrative: NAD, fluent speech. Calm. No evidence of withdrawal. Lungs are clear, regular effort. Heart is regular without murmur. Abdomen is somewhat tender in the epigastric and left upper quadrant. No guarding or rebound. Minimal distention. Extremities are free of edema. Objective Labs 09/29/23 05:00 09/29/23 05:00 Labs: Laboratory Results - last 24 hr 09/28/23 09/29/23 07:53 05:00 WBC 10.4 9.4 RBC 4.13 L 3.54 L Hgb 14.0 12.0 L Hct 39.4 L 34.2 L MCV 95.4 96.6 MCH 34.0 34.0 MCHC 35.6 35.2 RDW 13.4 13.3 Plt Count 194 160 Neut % (Auto) 80.0 H 83.5 H Lymph % (Auto) 9.2 L 7.3 L [place] % (Auto) 9.0 7.3 Eos % (Auto) 1.0 L 1.6 L Baso % (Auto) 0.8 0.3 Neut # (Auto) 8300 H 7900 H Lymph # (Auto) 1000 L 700 L [place] # (Auto) 900 700 Eos # (Auto) 100 200 Baso # (Auto) 100 0 PT 10.3 INR 0.9 APTT 29 Sodium 132 L 131 L Potassium 3.2 L 3.6 Chloride 91 L 94 L Carbon Dioxide 27 26 BUN 12 5 L Creatinine 1.08 0.70 Estimated GFR > 60 > 60 BUN/Creatinine Ratio 11.1 7.1 Glucose 128 H 125 H Calcium 9.4 8.9 Magnesium 1.6 Total Bilirubin 1.7 H AST 87 H ALT 38 Alkaline Phosphatase 79 Total Creatine Kinase 113 Troponin I < 0.012 Total Protein 8.1 Albumin 4.6 Globulin 3.5 Albumin/Globulin Ratio 1.3 Triglycerides 307 H Cholesterol 301 H LDL Cholesterol, Calc 168 H HDL Cholesterol 72 H Lipase 4187 H PFSH Medical History Elevated LFTs (~11/04/21) Hyperlipidemia, mixed Alcohol use disorder Hypertension Gout Herpes simplex (06/02/11) Hypertriglyceridemia Anxiety (05/21/11) Family History Grandfather CVA (cerebral infarction) Grandmother Age: 88 Diabetes mellitus Hypertension Social History household members: family Smoking Status: Former smoker Tobacco: How many years used: 10 Smokeless tobacco user: other (Nicotine vape (current)) alcohol intake: current substance use type: marijuana (CBD and low THC ) Assessment & Plan Assessment & Plan narrative: 1. Pancreatitis (likely alcohol induced), present on admission and active. -NPO, IV fluids, analgesia. -likely related to alcohol ingestion, we will check triglycerides. -confirmed by CT scan. No further diagnostics. -he will require a 2nd night of care, recommended inpatient status. -we will continue bowel rest, IV fluids. -we will discontinue telemetry. 2. Alcohol use disorder, present on admission and active. -[facility] protocol for possible withdrawal symptoms, thiamine. 3. Hypokalemia, present on admission and improved. -replete and follow. 4. Hypovolemic hyponatremia, present on admission and improved. -replete and follow. 5. Essential hypertension, present on admission and active. -resume lisinopril. Time Spent With Patient Time with patient: 30 to 49 minutes with 50% spent counseling/coordinating care
[2023-09-29] MEDS: lisinopriL 10 MG TABLET PO (08:15)
[2023-09-29] MEDS: HEPARIN 5,000 UNIT/ML VIAL 5000 UNIT SUBCUT ×2 (08:15→21:52)
[2023-09-29] MEDS: allopurinoL 100 MG TABLET PO (08:16)
[2023-09-29] MEDS: ACETAMINOPHEN 325 MG TABLET 650 MG PO (11:44)
--- NOTE | 2023-09-29 14:20 | CM.DANOTE ---
Initial DCP Assessment Note Patient is a 38 yo M, resident of [place], presents with severe abd pain, admitted INPT for management of Pancreatitis (likely alcohol induced) SW consult received for assessment of need and ANKITA discussion. PCP: Zayra Sanchez payer: Nasir Met w/patient to introduce self and role. 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 Patient lives with his and their 11 yo. Patient reports drinking approx 3 glasses of whiskey every evening once home, no mixer. Patient reports drinking more on the weekend and for special events or get together. Patient denies drinking to get drunk. Patient reports being able to stop his drinking whenever he needs and reports no negative effects on his life except for the painful experience of pancreatitis. Patient denies need for ANKITA/sobriety,recovery resources. Patient says he has accessed his EAP benefit through [employer] and can do that again as needed. Plan: Discharge home w/family upon discharge. No addition needs anticipated from this CM team. SUKUMAR Mata Discharge Planning/Care Management CM Discharge Assessment Start: 09/29/23 14:18 Freq: Status: Active Protocol: Document 09/29/23 14:18 FABIAN (Rec: 09/29/23 14:20 FABIAN [id number]) Discharge Planning Assessment Assigned Rate Clerk SUKUMAR Arango DPOA/Assigned Designee Name Kenyetta Augustin, spouse Contact Information [phone] Advance Directives? No History Provided By Patient Prior Living Arrangements House Household Members spouse,family Type of transporation used prior to Drives own vehicle admit Independent with ADL's Yes Is patient alert and oriented? Yes Barriers to Discharge No Discharge Plan Home Transportation Arrangement Spouse Referrals Initiated None needed Whiteboard Updated in Patient Room with Yes name and ext. # of Rate Clerk
[2023-09-29] MEDS: AMITRIPTYLINE 25 MG TABLET 50 MG PO (16:48)
[2023-09-30] MEDS: HYDROMORPHONE 0.5 MG INJ IV ×3 (00:46→07:27)
[2023-09-30] MEDS: DEXTROSE 5%-0.45% NS 1,000 ML 100 ML IV (00:46)
[2023-09-30 04:00] VITALS: BP 115/71; PULSE 106; RESP 17; TEMP 36.4; O2SAT 99
[2023-09-30 05:11] LABS: Add Manual Diff / Slide Review NO; Basophils Absolute Auto 0 /uL (0-100); Basophils Percent Auto 0.3 % (0-2); Eosinophils Absolute Auto 300 /uL (0-450); Eosinophils Percent Auto 2.4 % (2-4); Hematocrit 33.8 % (41-53); Hemoglobin 11.7 g/dL (13.5-17.5); Lymphocytes Absolute Auto 900 /uL (1100-4500); Lymphocytes Percent Auto 7.7 % (25-40); Mean Corpuscular HGB Conc 34.7 % (30-36); Mean Corpuscular Hemoglobin 33.4 PG (26-34); Mean Corpuscular Volume 96.2 fL (80-100); Monocytes Absolute Auto 1100 /uL (0-900); Neutrophils Absolute Auto 8800 /uL (1500-7000); Neutrophils Percent Auto 79.6 % (50-75); Platelet Count 197 X10^3/uL (150-400); Red Blood Cell Count 3.51 X10^6/uL (4.5-5.9); Red Cell Distribution Width 13.1 % (11.6-14.8); White Blood Cell Count 11.1 X10^3/uL (4.5-11.0)
[2023-09-30 05:31] LABS: BUN Creatinine Ratio 7.8 (6-22); Blood Urea Nitrogen 6 mg/dL (9-20); Carbon Dioxide 26 mmol/L (22-32); Chloride 93 mmol/L (98-107); Estimated Glomerular Filt Rate > 60 mL/min (>60); Glucose 127 mg/dL (70-100); HEMOLYSIS < 15 (0-50); Potassium 3.8 mmol/L (3.4-5.1); Sodium 129 mmol/L (137-145)
[2023-09-30 08:00] VITALS: BP 128/90; PULSE 102; RESP 20; TEMP 36.6; O2SAT 98
--- NOTE | 2023-09-30 08:49 | PM.PN.1 ---
Subjective Subjective Interval history: His pain is much better. He is hungry. No flatus or BM. Heel walk this morning. Exam Vital Signs (past 8 hours): - 09/30/23 04:00 09/30/23 08:00 Temperature 97.6 F 97.8 F Pulse Rate 106 H 102 H Respiratory Rate 17 20 Blood Pressure 115/71 128/90 Pulse Oximetry 99 98 Oxygen Flow Rate 0 0 Oxygen Delivery Method Room Air Oxygen Flow Rate 0 Narrative Exam Narrative: NAD, fluent speech. Lungs are clear, normal effort. Heart is regular, no murmur. Abdomen is soft, non tender. Extremities are free of edema. Objective Labs 09/30/23 04:45 09/30/23 04:45 Labs: Laboratory Results - last 24 hr 09/30/23 04:45 WBC 11.1 H RBC 3.51 L Hgb 11.7 L Hct 33.8 L MCV 96.2 MCH 33.4 MCHC 34.7 RDW 13.1 Plt Count 197 Neut % (Auto) 79.6 H Lymph % (Auto) 7.7 L [place] % (Auto) 10.0 Eos % (Auto) 2.4 Baso % (Auto) 0.3 Neut # (Auto) 8800 H Lymph # (Auto) 900 L [place] # (Auto) 1100 H Eos # (Auto) 300 Baso # (Auto) 0 Sodium 129 L Potassium 3.8 Chloride 93 L Carbon Dioxide 26 BUN 6 L Creatinine 0.77 Estimated GFR > 60 BUN/Creatinine Ratio 7.8 Glucose 127 H Calcium 9.0 PFSH Medical History Elevated LFTs (~11/04/21) Hyperlipidemia, mixed Alcohol use disorder Hypertension Gout Herpes simplex (06/02/11) Hypertriglyceridemia Anxiety (05/21/11) Family History Grandfather CVA (cerebral infarction) Grandmother Age: 88 Diabetes mellitus Hypertension Social History household members: spouse and family Smoking Status: Former smoker Tobacco: How many years used: 10 Smokeless tobacco user: other (Nicotine vape (current)) alcohol intake: current substance use type: marijuana (CBD and low THC ) Assessment & Plan Assessment & Plan narrative: 1. Pancreatitis (likely alcohol induced), present on admission and improving. -clear liqs trial, OOB and ambulate. 2. Alcohol use disorder, present on admission and stable. -No WD Symptoms. 3. Hypokalemia, present on admission and resolved. 4. Hypovolemic hyponatremia, present on admission and improved. -replete and follow. 5. Essential hypertension, present on admission and active. -resume lisinopril. DISPO: Possible discharge later today if he does well with diet advanced and pain control. Time Spent With Patient Time with patient: 30 to 49 minutes with 50% spent counseling/coordinating care
[2023-09-30] MEDS: HEPARIN 5,000 UNIT/ML VIAL 5000 UNIT SUBCUT (08:53)
[2023-09-30 08:54] VITALS: BP 128/90; PULSE 102
[2023-09-30] MEDS: lisinopriL 10 MG TABLET PO (08:54)
[2023-09-30] MEDS: ONDANSETRON 4 MG/2 ML INJ IV (08:54)
[2023-09-30] MEDS: allopurinoL 100 MG TABLET PO (08:55)
[2023-09-30] MEDS: OXYCODONE IR 10 MG TABLET PO ×2 (09:43→12:56)
[2023-09-30] MEDS: SODIUM CHLORIDE 0.9% FLUSH 10 ML IV (09:43)
[2023-09-30 12:00] VITALS: BP 133/80; PULSE 110; RESP 18; O2SAT 100
--- NOTE | 2023-09-30 13:44 | P.DS_ITS ---
History of Present Illness History of Present Illness Chief complaint: upper abd/left side/back pain Narrative: The patient is a 38-year-old male with a history of gout, hypertension, and alcohol abuse who presented to the ED with left-sided abdominal pain today. This has been ongoing for 2-3 days and increasing. He notes that he has had some nausea as well. The pain does seem to increase with positional movements. He would did have something to eat this morning and denies acute exacerbation of the pain. He does drink 2-3 glasses of whiskey at night. He denied any history of alcohol withdrawal symptoms to the emergency physician. In the emergency department his lipase was elevated and there was a concern for pancreatitis. He denies recent diarrhea, or blood per rectum. He has no history of pancreatitis. He was noted to be tachycardic, but normotensive and afebrile in the emergency department. He adds that this has really been going on since about Tuesday or 3-1/2 days. He notes his last drink was probably on Tuesday. He denies a history of shakes or other severe withdrawal symptoms. He drinks 2 or 3 whiskeys a day. He does take routine hypertension medications. He denies any hematemesis, diarrhea or blood per rectum. The pain is most noticeable in the left upper quadrant and radiating to the back. CT scan is consistent with pancreatitis, no necrosis or fluid collections are noted. He does have some inflammation around the left descending colon which may explain his left upper quadrant pain. Discharge Providers Provider Date of admission: 09/28/23 13:08 Discharge Date: 09/30/23 Primary care physician: Zayra Sanchez DO Consults: 09/28/23 14:03 Consult to Dietitian, Adult Routine Comment: Reason For Exam: unintentional weight loss Consult to Motorcycle Delivery Driver Routine Comment: Discharge provider: Ayush Meraz MD Summary Hospital Course Discharge Diagnosis: 1. Pancreatitis (likely alcohol induced), present on admission and improving. -clear liqs trial, OOB and ambulate. 2. Alcohol use disorder, present on admission and stable. -No WD Symptoms. 3. Hypokalemia, present on admission and resolved. 4. Hypovolemic hyponatremia, present on admission and improved. -replete and follow. 5. Essential hypertension, present on admission and active. -resume lisinopril. 6. Elevated triglycerides, present on admission and active, level 337. H/O levels of 1000 in the past. Hospital Course: The patient was admitted with acute pancreatitis which was felt to likely relate to alcohol use. The patient was treated with typical measures of NPO, IV fluids and analgesia. He improved and was able to advance diet. Imaging was consistent with pancreatitis. He does have a history of alcohol abuse in his advised to minimize or stop all alcohol intake if possible. He is also asked to follow up with his primary care for close follow up appointment within the next 6 days after discharge. His triglyceride level is 307, this may also have some relation. We will start him on atorvastatin 20 mg daily as well. Status at Discharge Cognitive/behavioral status at discharge: oriented Functional status at discharge: independent ambulation Overall status at discharge: patient is back to baseline Time Spent with Patient Time spent: Greater than 30 minutes Exam Vital Signs (past 8 hours): - 09/30/23 08:00 09/30/23 08:54 09/30/23 12:00 Temperature 97.8 F Pulse Rate 102 H 102 H 110 H Respiratory Rate 20 18 Blood Pressure 128/90 128/90 133/80 Pulse Oximetry 98 100 Oxygen Flow Rate 0 0 Oxygen Delivery Method Room Air Oxygen Flow Rate 0 Narrative Exam Narrative: NAD, fluent speech. Lungs are clear, normal effort. Heart is regular, no murmur. Abdomen is soft, non tender. Extremities are free of edema. Objective Imaging Multiple studies:: Radiologist's impression: Admission chest x-ray is unremarkable. Admission abdominal ultrasound reveals: 1. Normal ultrasound appearance of pancreas, which does not exclude pancreatitis. 2. Normal gallbladder. No gallstones. 3. A small hepatic cyst. Admission CT of the abdomen reveals: 1. Pancreatitis. 2. Possible pancreatic tail mass. Further assessment with nonemergent outpatient follow-up pancreas protocol MRI is recommended for further assessment. 3. Thickening of the left colon, which may be secondary to pancreatitis, with differential considerations also include ischemia, infection, inflammation. Follow-up colonoscopy is recommended to exclude underlying neoplasm. 4. Normal appendix. Labs 09/30/23 04:45 09/30/23 04:45 Labs: Laboratory Results - last 24 hr 09/30/23 04:45 WBC 11.1 H RBC 3.51 L Hgb 11.7 L Hct 33.8 L MCV 96.2 MCH 33.4 MCHC 34.7 RDW 13.1 Plt Count 197 Neut % (Auto) 79.6 H Lymph % (Auto) 7.7 L [place] % (Auto) 10.0 Eos % (Auto) 2.4 Baso % (Auto) 0.3 Neut # (Auto) 8800 H Lymph # (Auto) 900 L [place] # (Auto) 1100 H Eos # (Auto) 300 Baso # (Auto) 0 Sodium 129 L Potassium 3.8 Chloride 93 L Carbon Dioxide 26 BUN 6 L Creatinine 0.77 Estimated GFR > 60 BUN/Creatinine Ratio 7.8 Glucose 127 H Calcium 9.0 PFSH Medical History Elevated LFTs (~11/04/21) Hyperlipidemia, mixed Alcohol use disorder Hypertension Gout Herpes simplex (06/02/11) Hypertriglyceridemia Anxiety (05/21/11) Family History Grandfather CVA (cerebral infarction) Grandmother Age: 88 Diabetes mellitus Hypertension Social History household members: spouse and family Smoking Status: Former smoker Tobacco: How many years used: 10 Smokeless tobacco user: other (Nicotine vape (current)) alcohol intake: current substance use type: marijuana (CBD and low THC ) Discharge Assessment & Plan Assessment and Plan Assessment: 1. Pancreatitis (likely alcohol induced), present on admission and improving. -clear liqs trial, OOB and ambulate. 2. Alcohol use disorder, present on admission and stable. -No WD Symptoms. 3. Hypokalemia, present on admission and resolved. 4. Hypovolemic hyponatremia, present on admission and improved. -replete and follow. 5. Essential hypertension, present on admission and active. -resume lisinopril. Plan of Treatment: Discharge home with a small amount of oxycodone for pain, and initiation of simvastatin 20 mg daily. Follow up with PCP within the next 6 days and cessation of alcohol. Discharge Plan Discharge Plan Patient Disposition: Home Provider Discharge Comment: Did well with diet advance, stable for discharge. Discharge orders & Medications Prescriptions: New oxycodone 5 mg capsule 5 mg PO Q8H PRN (Reason: pain) Qty: 14 0RF Continued amitriptyline 50 mg tablet 50 mg PO ONCE PM MDD 50mg Qty: 90 2RF Rx Instructions: Take one tablet by mouth at bedtime(takes at 1600) lisinopril 10 mg tablet 10 mg PO DAILY MDD 10mg Qty: 90 0RF Rx Instructions: Take one tablet by mouth daily. allopurinol 100 mg tablet 100 mg PO DAILY Qty: 90 0RF colchicine 0.6 mg tablet 0.6 mg PO DAILY Qty: 20 0RF Rx Instructions: double dose first day then 1 tab daily until gout flare is resolved prednisone 20 mg tablet 20 mg PO DAILY Qty: 15 0RF Patient Comments: takes when he feels a gout flare coming Follow up/Referrals: Zayra Sanchez DO [Primary Care Provider] - Discharge Health Status Multidrug resistant organism: No MDRO Diet/Activity/Treatments Diet: Diet as Tolerated Diet comment: No alcohol. Skin/Wound/Dressing Care Report to your healthcare provider any signs of infection, such as:: increased pain Visit Report/Discharge Packet Instructions: DI for Heart Failure Stand Alone Forms: Patient Portal/API Discharge Data Primary Care Provider: Zayra Sanchez
--- NOTE | 2023-09-30 14:41 | PC.NURSE ---
Day shift: Discharge instructions gone over with patient. All questions answered, patient stated understanding. PIV d/c'ed prior to discharge. All belongings with patient - nothing in the safe. PCT Ana escorted patient to [place] pharmacy where patient plans to crab picker his prescriptions and get then get a ride home from his brother.
== END 2023-09-30 14:47 | disposition home or self-care (01) | DRG 439 ==
LOC: ED 11:37 → AC 09-29 07:21
PROVIDERS: Admitting Provider Hospitalist; Emergency Provider Emergency Medicine; Family Provider Family Medicine; PCP Family Medicine; Referring Provider Emergency Medicine; Visit Provider Hospitalist
DX: K85.20 Alcohol induced acute pancreatitis without necrosis or infection (principal); E87.1 Hypo-osmolality and hyponatremia; E87.6 Hypokalemia; I10 Essential (primary) hypertension; E78.1 Pure hyperglyceridemia; F41.9 Anxiety disorder, unspecified; M10.9 Gout, unspecified; Z87.891 Personal history of nicotine dependence
CPT/HCPCS: 36415; 71045; 74177; 76705; 80048; 80053; 80061; 82550; 83690; 83735; 84484; 85025; 85610; 85730; 93005; 96374; 96375; 99284; 99285; G0378; C9113; J1170; J1644; J1885; J2270; J2405; Q9967

== ENCOUNTER → 2023-11-29 08:10 | Outpatient (CLI) | payer OTHER, SELFPAY ==
[2023-09-28 13:59] VITALS: BMI 26.2
[2023-11-29 09:10] LABS: Hemoglobin A1C% w Est Avg Glu 5.2 % (4.0-6.0)
[2023-11-29 09:29] LABS: Lipase 58 U/L (23-300)
[2023-11-29 10:16] LABS: TSH w/ Reflex to FT4 1.58 uIU/mL (0.47-4.68)
== END ==
PROVIDERS: Family Provider Family Medicine; PCP Family Medicine; Referring Provider Family Medicine; Visit Provider Family Medicine
DX: R73.9 Hyperglycemia, unspecified (principal); R53.83 Other fatigue; R79.89 Other specified abnormal findings of blood chemistry; K85.90 Acute pancreatitis without necrosis or infection, unspecified
CPT/HCPCS: 36415; 83036; 83690; 84402; 84403; 84443

== ENCOUNTER 2024-07-16 16:45 | Emergency (ER) | payer OTHER, SELFPAY ==
[2023-09-28 13:59] VITALS: BMI 26.2
[2024-07-16] VITALS (14 sets, daily range): BP systolic 138–165; BP diastolic 90–113; PULSE 109–134; RESP 12–24; TEMP 37.6; O2SAT 95–99; BMI 27.3
--- NOTE | 2024-07-16 16:58 | EKG_ITS ---
[place] [id number] [place] [id number] Test Date: 2024-07-16 Pat Name: Ricky Augustin Department: 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
[2024-07-16] MEDS: ONDANSETRON 4 MG/2 ML INJ IV (17:15)
[2024-07-16 17:25] LABS: Add Manual Diff / Slide Review NO; Basophils Absolute Auto 100 /uL (0-100); Basophils Percent Auto 0.5 % (0-2); Eosinophils Absolute Auto 0 /uL (0-450); Eosinophils Percent Auto 0.2 % (2-4); Hematocrit 45.8 % (41-53); Hemoglobin 16.1 g/dL (13.5-17.5); Lymphocytes Absolute Auto 1100 /uL (1100-4500); Lymphocytes Percent Auto 8.9 % (25-40); Mean Corpuscular HGB Conc 35.1 % (30-36); Mean Corpuscular Hemoglobin 32.6 PG (26-34); Monocytes Absolute Auto 500 /uL (0-900); Monocytes Percent Auto 4.3 % (3-14); Neutrophils Absolute Auto 10400 /uL (1500-7000); Neutrophils Percent Auto 86.1 % (50-75); Platelet Count 305 X10^3/uL (150-400); Red Blood Cell Count 4.93 X10^6/uL (4.5-5.9); Red Cell Distribution Width 13.3 % (11.6-14.8)
[2024-07-16 17:31] LABS: Alanine Aminotransferase 34 IU/L (<50); Albumin 4.8 g/dL (3.5-5.0); Albumin Globulin Ratio 1.5 (1.0-2.8); Alkaline Phosphatase 83 U/L (38-126); Aspartate Aminotransferase 49 IU/L (17-59); BUN Creatinine Ratio 21.8 (6-22); Bilirubin Total 0.8 mg/dL (0.2-1.3); Blood Urea Nitrogen 22 mg/dL (9-20); Carbon Dioxide 17 mmol/L (22-32); Chloride 103 mmol/L (98-107); Estimated Glomerular Filt Rate > 60 mL/min (>60); Globulin 3.2 g/dL (1.7-4.1); Glucose 110 mg/dL (70-100); HEMOLYSIS 20 (0-50); Lipase 209 U/L (23-300); Sodium 135 mmol/L (137-145)
[2024-07-16] MEDS: SODIUM CHLORIDE 0.9% 1,000 ML 1000 ML IV (17:38)
[2024-07-16] MEDS: MORPHINE 4 MG/ML INJ IV (19:28)
--- NOTE | 2024-07-16 20:06 | DI.CT.S_ITS ---
PROCEDURE: CT ABDOMEN PELVIS W CON INDICATIONS: abd pain TECHNIQUE: After the administration of intravenous contrast, axial sections acquired from the lung bases to the pubic symphysis. Coronal and sagittal reformats were performed. For radiation dose reduction, the following was used: automated exposure control, adjustment of mA and/or kV according to patient size. COMPARISON: [facility], CT, CT ABDOMEN PELVIS W CON, 09/28/2023, 12:03. FINDINGS: Image quality: Diagnostic. Lower Chest: No significant findings. ABDOMEN: Liver: No solid mass. Hepatic steatosis. Gallbladder: No radiopaque gallstones or wall thickening. Biliary ducts: No biliary dilation. Pancreas: No ductal dilation. Small cystic area at the distal tail the pancreas measuring approximately 2.1 cm, (2/48), previously 2.2 cm. The area appears slightly decreased in size. This could represent a small pseudocyst. The previously seen fat stranding about the tail the pancreas is decreased. Spleen: Size is within normal limits. Adrenal Glands: No adrenal nodules. Kidneys and Ureters: No hydronephrosis. No solid mass. No complex renal cystic lesion which requires follow up. Stomach and Bowel: Normal colonic caliber, without significant wall thickening. Diverticulosis. No diverticulitis. Normal appendix. No small bowel obstruction. The stomach is within normal limits. Peritoneum: No significant ascites. No pneumoperitoneum. Ventral Wall: No significant ventral hernia. Abdominal Nodes: No retroperitoneal or mesenteric adenopathy by size criteria. Small nodes superior to the pancreas measuring 0.8 cm, (4/55), previously 0.9 cm. Vessels: Aorta and inferior vena cava are normal in size. PELVIS: Pelvic Organs: Unremarkable. Bladder: No bladder wall thickening, accounting for underdistention. No stone. Urachal remnant. Pelvic Nodes: No enlarged lymph nodes. Miscellaneous: No inguinal hernias are seen. Bones: No aggressive osseous abnormality. IMPRESSION: 1. Decreased inflammatory change about the tail the pancreas. 2. Cystic area at the distal tail the pancreas measuring 2.1 cm. This could represent a small pseudocyst. -Recommend continued imaging surveillance. 3. Hepatic steatosis. Dictated by: Sony Rosa M.D. on 07/16/2024 at 21:26 Approved by: Sony Rosa M.D. on 07/16/2024 at 21:34
[2024-07-16] MEDS: PANTOPRAZOLE 40 MG VIAL IV (20:29)
--- NOTE | 2024-07-16 20:37 | ED_ITS ---
HPI - Abdominal Pain General Chief Complaint: Abdominal Pain Stated Complaint: L Side Px, Dry Heaving Time Seen by Provider: 07/16/24 17:12 Source: patient Mode of arrival: Ambulatory History of Present Illness HPI narrative: 39-year-old male with history alcohol abuse, drinks regularly multiple drinks daily through yesterday, since this morning has had numerous episodes of nonbloody emesis, left upper quadrant abdominal pain. No injury or trauma. No cough or shortness of breath. No fevers or chills. No black or red stools. Last bowel movement earlier today unremarkable. No loose stools. No history of kidney stones. Prior history of alcoholic pancreatitis, feels somewhat similar. Related Data Previous Rx's Medication Instructions Recorded prednisone 20 mg tablet 20 mg PO DAILY #15 tabs 07/05/23 colchicine 0.6 mg tablet 0.6 mg PO DAILY #20 tabs 11/09/23 lisinopril 10 mg tablet 10 mg PO DAILY #90 tabs 02/14/24 atorvastatin 20 mg tablet 20 mg PO ONCE PM #30 tabs 04/25/24 amitriptyline 50 mg tablet 50 mg PO ONCE PM #90 tabs 05/21/24 allopurinol 100 mg tablet 100 mg PO DAILY #90 tabs 07/09/24 oxycodone-acetaminophen 5 mg-325 1 tab PO Q6H PRN pain #14 tabs 07/17/24 mg tablet pantoprazole 40 mg tablet,delayed 40 mg PO DAILY #30 tabs 07/17/24 release Allergies Allergy/AdvReac Type Severity Reaction Status Date / Time cat dander [CAT DANDER] Allergy Intermediate eyes Verified 11/18/23 11:04 watery, gets itchy Review of Systems Review of Systems Narrative: See HPI Patient History Medical History Elevated LFTs (~11/04/21) Hyperlipidemia, mixed Alcohol use disorder Hypertension Gout Herpes simplex (06/02/11) Hypertriglyceridemia Anxiety (05/21/11) Family History Grandfather CVA (cerebral infarction) Grandmother Age: 88 Diabetes mellitus Hypertension Social History household members: spouse and family Smoking Status: Former smoker Tobacco: How many years used: 10 Smokeless tobacco user: other (Nicotine vape (current)) alcohol intake: current substance use type: marijuana (CBD and low THC ) Smoking Status: Former smoker alcohol intake frequency: 3 or more drinks per day Alcohol type: beer Exam Narrative Exam Narrative: GENERAL: Well-developed patient, in mild distress. HEAD: Atraumatic. Normocephalic. EYES: Pupils equal round and reactive. Extraocular motions intact. No scleral icterus. No injection or drainage. ENT: Nose without bleeding, purulent drainage. Throat without erythema, tonsillar hypertrophy or exudate. Airway patent. NECK: Trachea midline. Non tender CARDIOVASCULAR: Regular rate and rhythm without murmurs, gallops, or rubs. RESPIRATORY: Clear to auscultation. Breath sounds equal bilaterally. No wheezes, rales, or rhonchi. GASTROINTESTINAL: Abdomen with some tenderness epigastrium and left upper quadrant, nondistended, no guarding or rebound tenderness, bowel sounds unremarkable. EXTREMITIES: No edema or joint tenderness. BACK: Nontender without deformity or crepitance. No flank tenderness. NEURO: AOx3. Motor functions grossly nonfocal SKIN: No rash or erythema of visible areas Initial Vital Signs Initial Vital Signs: Vital Signs Temperature 99.6 F 07/16/24 16:53 Pulse Rate 134 H 07/16/24 16:53 Respiratory Rate 20 07/16/24 16:53 Blood Pressure 144/107 H 07/16/24 16:53 Pulse Oximetry 97 07/16/24 16:53 Oxygen Delivery Method Room Air 07/16/24 16:53 Course Orders Ordered: Discontinued Medications Hydromorphone HCl (Hydromorphone 0.5 Mg Inj) 0.5 mg IV NOW ONE Stop: 07/16/24 22:08 Last Admin: 07/16/24 22:26 Dose: 0.5 mg Documented By: SB Sodium Chloride (Normal Saline 0.9%) 1,000 mls @ 1,000 mls/hr IV BOLUS ONE Stop: 07/16/24 18:23 Last Infusion: 07/16/24 19:12 Dose: Infused Documented By: Admin: 07/16/24 17:38 Dose: 1,000 mls/hr Documented By: SPF Morphine Sulfate (Morphine 4 Mg/Ml Inj) 4 mg IV NOW ONE Stop: 07/16/24 19:18 Last Admin: 07/16/24 19:28 Dose: 4 mg Documented By: MATT Ondansetron HCl (Ondansetron 4 Mg/2 Ml Inj) 4 mg IV NOW PRN PRN Reason: Nausea And Vomiting Last Admin: 07/16/24 17:15 Dose: 4 mg Documented By: OZ Ondansetron HCl (Ondansetron 4 Mg Odt) 4 mg PO NOW PRN PRN Reason: Nausea And Vomiting Ondansetron HCl (Ondansetron 4 Mg Odt Prepack) 1 bottle MISC DIRECTED ONE Stop: 07/17/24 00:33 Last Admin: 07/17/24 00:45 Dose: 1 bottle Documented By: ENRIQUE Oxycodone/Acetaminophen (Oxycodone/Acetaminophen 5/325 Tablet) 1 tab PO NOW ONE Stop: 07/16/24 22:47 Last Admin: 07/16/24 23:32 Dose: 1 tab Documented By: MATT Oxycodone/Acetaminophen (Oxycodone/Apap 5/325 Prepack) 1 bottle MISC DIRECTED ONE Stop: 07/17/24 00:33 Last Admin: 07/17/24 00:45 Dose: 1 bottle Documented By: ENRIQUE Pantoprazole Sodium (Pantoprazole 40 Mg Vial) 40 mg IV NOW ONE Stop: 07/16/24 20:07 Last Admin: 07/16/24 20:29 Dose: 40 mg Documented By: MATT Vital Signs Vital signs: Vital Signs - 8 hr 07/16/24 16:53 07/16/24 17:30 07/16/24 17:30 Temperature 99.6 F Pulse Rate 134 H 120 H Respiratory Rate 20 24 Blood Pressure 144/107 H 156/108 H Pulse Oximetry 97 98 Oxygen Delivery Method Room Air 07/16/24 18:00 07/16/24 18:00 07/16/24 18:30 Temperature Pulse Rate 109 H Respiratory Rate 12 Blood Pressure 162/109 H 165/111 H Pulse Oximetry 98 Oxygen Delivery Method 07/16/24 18:30 07/16/24 19:30 07/16/24 19:30 Temperature Pulse Rate 111 H 111 H Respiratory Rate 17 21 Blood Pressure 161/113 H Pulse Oximetry 99 99 Oxygen Delivery Method Room Air Room Air 07/16/24 20:00 07/16/24 20:00 07/16/24 20:30 Temperature Pulse Rate 116 H 120 H Respiratory Rate 12 14 Blood Pressure 149/107 H Pulse Oximetry 97 97 Oxygen Delivery Method 07/16/24 20:36 07/16/24 20:36 Temperature Pulse Rate 120 H Respiratory Rate 23 Blood Pressure 156/105 H Pulse Oximetry 98 Oxygen Delivery Method Room Air MDM - Abdominal Pain Lab Data Attestation: I reviewed the patient's lab results. Lab results narrative: White blood cell count 95750, hemoglobin 16, platelets adequate. Basic metabolic panel shows serum CO2 17, otherwise unremarkable. Liver functions normal. Lipase normal. 07/16/24 17:08 07/16/24 17:08 Labs: Lab Results 07/16/24 07/16/24 Range/Units 17:08 20:22 WBC 12.0 H (4.5-11.0) X10^3/uL RBC 4.93 (4.5-5.9) X10^6/uL Hgb 16.1 (13.5-17.5) g/dL Hct 45.8 (41-53) % MCV 93.0 (80-100) fL MCH 32.6 (26-34) PG MCHC 35.1 (30-36) % RDW 13.3 (11.6-14.8) % Plt Count 305 (150-400) X10^3/uL Neut % (Auto) 86.1 H (50-75) % Lymph % (Auto) 8.9 L (25-40) % [place] % (Auto) 4.3 (3-14) % Eos % (Auto) 0.2 L (2-4) % Baso % (Auto) 0.5 (0-2) % Neut # (Auto) 52220 H (4240-2320) /uL Lymph # (Auto) 1100 (5004-8276) /uL [place] # (Auto) 500 (0-900) /uL Eos # (Auto) 0 (0-450) /uL Baso # (Auto) 100 (0-100) /uL Sodium 135 L (137-145) mmol/L Potassium 4.0 (3.4-5.1) mmol/L Chloride 103 (98-107) mmol/L Carbon Dioxide 17 L (22-32) mmol/L BUN 22 H (9-20) mg/dL Creatinine 1.01 (0.66-1.25) mg/dL Estimated GFR > 60 (>60) mL/min BUN/Creatinine Ratio 21.8 (6-22) Glucose 110 H (70-100) mg/dL Calcium 9.0 (8.4-10.2) mg/dL Total Bilirubin 0.8 (0.2-1.3) mg/dL AST 49 (17-59) IU/L ALT 34 (<50) IU/L Alkaline Phosphatase 83 (38-126) U/L Total Protein 8.0 (6.3-8.2) g/dL Albumin 4.8 (3.5-5.0) g/dL Globulin 3.2 (1.7-4.1) g/dL Albumin/Globulin Ratio 1.5 (1.0-2.8) Lipase 209 (23-300) U/L Urine RBC None seen (0-5/HPF) Urine WBC None seen (0-5/HPF) Ur Squamous Epith Cells None seen (0-5/HPF) Urine Bacteria None seen (None) Urine Mucus 1+ H (Negative) Ur Culture Indicated? Cult not indicated Vol Urine Centrifuged 10ml (spun) Point of care testing: Urine Dip Bedside Urine Glucose Negative Bedside Urine Bilirubin - Negative Bedside Urine Ketone - Negative Urine Specific [place] 1.030 Bedside Urine Occult Blood - Negative Bedside Urine pH 5.5 Bedside Urine Protein +/- 15 Bedside Urine Urobilinogen - Negative Bedside Urine Nitrite - Negative Bedside Urine Leukocytes - Negative Esterase Imaging Data CT scan - abdomen/pelvis: Radiologist's Impression: [place] [address] CT Scan Report Signed Patient: Ricky Augustin MR#: [id number] : 1985 Acct:[id number] Age/Sex: 39 / M Date of Service: 07/16/24 Loc: ED Accession Number: [id number] Procedure: CT abdomen pelvis w con Ordering Provider: Aaron Manzanares MD PROCEDURE: CT ABDOMEN PELVIS W CON INDICATIONS: abd pain TECHNIQUE: After the administration of intravenous contrast, axial sections acquired from the lung bases to the pubic symphysis. Coronal and sagittal reformats were performed. For radiation dose reduction, the following was used: automated exposure control, adjustment of mA and/or kV according to patient size. COMPARISON: [facility], CT, CT ABDOMEN PELVIS W CON, 09/28/2023, 12:03. FINDINGS: Image quality: Diagnostic. Lower Chest: No significant findings. ABDOMEN: Liver: No solid mass. Hepatic steatosis. Gallbladder: No radiopaque gallstones or wall thickening. Biliary ducts: No biliary dilation. Pancreas: No ductal dilation. Small cystic area at the distal tail the pancreas measuring approximately 2.1 cm, (2/48), previously 2.2 cm. The area appears slightly decreased in size. This could represent a small pseudocyst. The previously seen fat stranding about the tail the pancreas is decreased. Spleen: Size is within normal limits. Adrenal Glands: No adrenal nodules. Kidneys and Ureters: No hydronephrosis. No solid mass. No complex renal cystic lesion which requires follow up. Stomach and Bowel: Normal colonic caliber, without significant wall thickening. Diverticulosis. No diverticulitis. Normal appendix. No small bowel obstruction. The stomach is within normal limits. Peritoneum: No significant ascites. No pneumoperitoneum. Ventral Wall: No significant ventral hernia. Abdominal Nodes: No retroperitoneal or mesenteric adenopathy by size criteria. Small nodes superior to the pancreas measuring 0.8 cm, (4/55), previously 0.9 cm. Vessels: Aorta and inferior vena cava are normal in size. PELVIS: Pelvic Organs: Unremarkable. Bladder: No bladder wall thickening, accounting for underdistention. No stone. Urachal remnant. Pelvic Nodes: No enlarged lymph nodes. Miscellaneous: No inguinal hernias are seen. Bones: No aggressive osseous abnormality. IMPRESSION: 1. Decreased inflammatory change about the tail the pancreas. 2. Cystic area at the distal tail the pancreas measuring 2.1 cm. This could represent a small pseudocyst. -Recommend continued imaging surveillance. 3. Hepatic steatosis. Dictated by: Sony Rosa M.D. on 07/16/2024 at 21:26 Approved by: Sony Rosa M.D. on 07/16/2024 at 21:34 ECG Data Attestation: I personally reviewed and interpreted this ECG as follows: Interpretation: Sinus tachycardia with rate of 131, no obvious ST elevation or depression changes. IN 154, QRS 90. QTC 416. MDM Narrative Medical decision making narrative: 39-year-old male with history of ongoing alcohol abuse, last drink yesterday, with numerous episodes nonbloody emesis the of the day today, left upper quadrant abdominal pain. History of pancreatitis. Afebrile, sirs screen negative. Screening labs remarkable for white blood cell count 43769, hemoglobin 16, normal liver functions and lipase. IV Protonix IV Zofran IV fluid bolus. IV morphine. CT abdomen and pelvis imaging pending. Keep NPO. CT shows small pseudocyst 2 cm, improving peripancreatic inflammation. See radiology report. Patient having more pain, IV Dilaudid. Consider admission, we will contact hospitalist. CIWA 2, no BDZ/PhBarb indicated at this time. 2250, patient feels improved after Dilaudid, now seems interested in trying to go home, we will give oral dose oxycodone, observe for the next 1-2 hours for oral fluid challenge. Tolerated oral fluid challenge, was able to ambulate, he prefers to go home now. Advice/encouraged to stop drinking alcohol. Discharged home per patient preference, return precautions discussed Discharge Plan Departure Patient Disposition: Home Clinical Impression: Nausea & vomiting, Pancreatitis, Abdominal pain with vomiting, Pancreatic pseudocyst Activity Restrictions/Additional Instructions: Ongoing alcohol use, history of pancreatitis, upper and left abdominal discomfort. No fever on triage. Some mild tenderness on initial examination. IV pain medications given, IV antinausea medicines, IV antacid medications. CT abdomen and pelvis imaging showed improved appearance pancreatitis, small pancreatic 2 cm fluid collection that might represent a pancreatic pseudocyst, which at this time is too small to have surgical drainage but needs further follow up as an outpatient. No fevers on triage. Initial consideration for admission, however you felt better after symptomatic treatment, we are able to take oral fluids. Case was discussed with hospitalist Dr. Mi who saw you could be treated as an outpatient as well. Discharged with pain medication, antinausea antacids. Recheck with your regular doctor in the next couple of days. Prescriptions: New oxycodone-acetaminophen 5-325 mg tablet 1 tab PO Q6H PRN (Reason: pain) Qty: 14 0RF pantoprazole 40 mg tablet,delayed release (DR/EC) 40 mg PO DAILY Qty: 30 0RF No Action colchicine 0.6 mg tablet 0.6 mg PO DAILY Qty: 20 0RF Rx Instructions: double dose first day then 1 tab daily until gout flare is resolved, If not improving/resolved in 5ddays please return to clinic for evaluation lisinopril 10 mg tablet 10 mg PO DAILY MDD 10mg Qty: 90 1RF Rx Instructions: Take one tablet by mouth daily. atorvastatin 20 mg tablet 20 mg PO ONCE PM Qty: 30 1RF amitriptyline 50 mg tablet 50 mg PO ONCE PM MDD 50mg Qty: 90 1RF Rx Instructions: Take one tablet by mouth at bedtime(takes at 1600) allopurinol 100 mg tablet 100 mg PO DAILY Qty: 90 0RF prednisone 20 mg tablet 20 mg PO DAILY Qty: 15 0RF Patient Comments: takes when he feels a gout flare coming Referrals: Zayra Sanchez DO [Primary Care Provider] - Stand Alone Forms: Patient Portal/API/Survey
[2024-07-16 21:07] LABS: Bacteria Urine None Seen; Culture Indicated Urine Cult Not Indicated; Mucus Urine 1+ (Negative); RBC Urine None Seen (0-5/HPF); Squamous Epithelial Cell Urine None Seen (0-5/HPF); Urine Volume 10mL (spun); WBC Urine None Seen (0-5/HPF)
[2024-07-16] MEDS: HYDROMORPHONE 0.5 MG INJ IV (22:26)
[2024-07-16] MEDS: OXYCODONE/ACETAMINOPHEN 5/325 TABLET 1 TAB PO (23:32)
[2024-07-17] VITALS: BP 142/98; PULSE 111; RESP 16; O2SAT 97
[2024-07-17 00:30] VITALS: BP 135/93; PULSE 112; RESP 13; O2SAT 97
[2024-07-17] MEDS: OXYCODONE/APAP 5/325 PREPACK 1 BOTTLE MISC (00:45)
[2024-07-17] MEDS: ONDANSETRON 4 MG ODT PREPACK 1 BOTTLE MISC (00:45)
== END 2024-07-17 01:08 | disposition home or self-care (01) ==
PROVIDERS: Emergency Medicine; Emergency Provider Emergency Medicine; Family Provider Family Medicine; PCP Family Medicine
DX: K85.90 Acute pancreatitis without necrosis or infection, unspecified (principal); K86.3 Pseudocyst of pancreas
CPT/HCPCS: 36415; 74177; 80053; 81003; 81015; 83690; 85025; 93005; 93010; J1171; J2270; J2405; J2470; Q9967

== ENCOUNTER 2024-07-17 04:43 | Observation (INO) | payer OTHER, SELFPAY ==
[2023-09-28 13:59] VITALS: BMI 26.2
[2024-07-17 05:11] VITALS: BP 151/106; PULSE 114; RESP 18; TEMP 36.9; O2SAT 97; BMI 27.3
--- NOTE | 2024-07-17 05:23 | ED.ABDPAIN ---
HPI - Abdominal Pain <Aaron Manzanares MD - Last Filed: 07/17/24 15:58> General Chief Complaint: Abdominal Pain Stated Complaint: pancreatitis Time Seen by Provider: 07/17/24 04:45 Source: patient Mode of arrival: Ambulatory History of Present Illness HPI narrative: 39yoM presents for recurrent abdominal pain. Seen yesterday here, diagnosed with alcohol pancreatitis and small 2cm psuedocyst on CT imaging. DC home with pain medications per hsi request. Pain not controlled. Returns a few hours later after requested discharged home. Some nausea, denies interim alcohol use or trauma. No black or red stools. No shaking or seizure activity, last drink alcohol yesterday. Related Data Previous Rx's Medication Instructions Recorded prednisone 20 mg tablet 20 mg PO DAILY #15 tabs 07/05/23 colchicine 0.6 mg tablet 0.6 mg PO DAILY #20 tabs 11/09/23 lisinopril 10 mg tablet 10 mg PO DAILY #90 tabs 02/14/24 atorvastatin 20 mg tablet 20 mg PO ONCE PM #30 tabs 04/25/24 amitriptyline 50 mg tablet 50 mg PO ONCE PM #90 tabs 05/21/24 allopurinol 100 mg tablet 100 mg PO DAILY #90 tabs 07/09/24 oxycodone-acetaminophen 5 mg-325 1 tab PO Q6H PRN pain #14 tabs 07/17/24 mg tablet pantoprazole 40 mg tablet,delayed 40 mg PO DAILY #30 tabs 07/17/24 release Allergies Allergy/AdvReac Type Severity Reaction Status Date / Time cat dander [CAT DANDER] Allergy Intermediate eyes Verified 11/18/23 11:04 watery, gets itchy <Charlene Brooks MD - Last Filed: 07/17/24 08:26> History of Present Illness HPI narrative: 39yoM presents for recurrent abdominal pain. Seen yesterday, diagnosed with alcohol pancreatitis. DC home with pain medications. Pain not controlled. Patient History <Aaron Manzanares MD - Last Filed: 07/17/24 15:58> Medical History Elevated LFTs (~11/04/21) Hyperlipidemia, mixed Alcohol use disorder Hypertension Gout Herpes simplex (06/02/11) Hypertriglyceridemia Anxiety (05/21/11) Family History Grandfather CVA (cerebral infarction) Grandmother Age: 88 Diabetes mellitus Hypertension Social History household members: spouse and family Smoking Status: Former smoker Tobacco: How many years used: 10 Smokeless tobacco user: other (Nicotine vape (current)) alcohol intake: current substance use type: marijuana (CBD and low THC ) Smoking Status: Former smoker alcohol intake frequency: 3 or more drinks per day Alcohol type: beer Exam <Aaron Manzanares MD - Last Filed: 07/17/24 15:58> Narrative Exam Narrative: GENERAL: Well-developed patient, in mild distress. HEAD: Atraumatic. Normocephalic. EYES: Pupils equal round and reactive. Extraocular motions intact. No scleral icterus. No injection or drainage. ENT: Nose without bleeding, purulent drainage. Throat without erythema, tonsillar hypertrophy or exudate. Airway patent. NECK: Trachea midline. Non tender CARDIOVASCULAR: Regular rate and rhythm without murmurs, gallops, or rubs. RESPIRATORY: Clear to auscultation. Breath sounds equal bilaterally. No wheezes, rales, or rhonchi. GASTROINTESTINAL: Abdomen soft, tenderness epigastrium and LUQ, no guaring or rebound, nondistended EXTREMITIES: No edema or joint tenderness. BACK: Nontender without deformity or crepitance. No flank tenderness. NEURO: AOx3. Motor functions grossly nonfocal SKIN: No rash or erythema of visible areas Initial Vital Signs Initial Vital Signs: Vital Signs Temperature 98.5 F 07/17/24 05:11 Pulse Rate 114 H 07/17/24 05:11 Respiratory Rate 18 07/17/24 05:11 Blood Pressure 151/106 H 07/17/24 05:11 Pulse Oximetry 97 07/17/24 05:11 Oxygen Delivery Method Room Air 07/17/24 05:11 <Charlene Brooks MD - Last Filed: 07/17/24 08:26> Initial Vital Signs Initial Vital Signs: Vital Signs Temperature 98.5 F 07/17/24 05:11 Pulse Rate 114 H 07/17/24 05:11 Respiratory Rate 18 07/17/24 05:11 Blood Pressure 151/106 H 07/17/24 05:11 Pulse Oximetry 97 07/17/24 05:11 Oxygen Delivery Method Room Air 07/17/24 05:11 Course <Aaron Manzanares MD - Last Filed: 07/17/24 15:58> Orders Ordered: Heparin Sodium (Porcine) (Heparin 5,000 Unit/Ml Vial) 5,000 unit SUBCUT BID PENDING SALE TO [facility] Last Admin: 07/17/24 10:19 Dose: 5,000 unit Documented By: MS Hydromorphone HCl (Hydromorphone 0.5 Mg Inj) 0.5 mg IV Q1H PRN PRN Reason: Pain, Severe (7-10) Last Admin: 07/17/24 15:40 Dose: 0.5 mg Documented By: AMEYA Dextrose/Sodium Chloride (Dextrose 5%-0.9% Ns) 1,000 mls @ 100 mls/hr IV CONT PENDING SALE TO [facility] Last Admin: 07/17/24 10:20 Dose: 100 mls/hr Documented By: MS Naloxone HCl (Naloxone 0.4 Mg/Ml Vial) 0.2 mg IV Q2MIN PRN PRN Reason: Opiate Reversal Oxycodone HCl (Oxycodone Ir 10 Mg Tablet) 10 mg PO Q3HR PRN PRN Reason: Pain, Severe (7-10) Last Admin: 07/17/24 15:09 Dose: 10 mg Documented By: AMEYA Discontinued Medications Hydromorphone HCl (Hydromorphone 0.5 Mg Inj) 0.5 mg IV NOW ONE Stop: 07/17/24 05:37 Last Admin: 07/17/24 05:39 Dose: 0.5 mg Documented By: AB Hydromorphone HCl (Hydromorphone 0.5 Mg Inj) 0.5 mg IV NOW ONE Stop: 07/17/24 07:32 Last Admin: 07/17/24 07:34 Dose: 0.5 mg Documented By: CTS Hydromorphone HCl (Hydromorphone 0.5 Mg Inj) 0.5 mg IV Q2H PRN PRN Reason: Pain, Severe (7-10) Last Admin: 07/17/24 13:03 Dose: 0.5 mg Documented By: Admin: 07/17/24 10:19 Dose: 0.5 mg Documented By: Sodium Chloride (Normal Saline 0.9%) 1,000 mls @ 1,000 mls/hr IV BOLUS ONE Stop: 07/17/24 06:43 Last Infusion: 07/17/24 06:41 Dose: Infused Documented By: Admin: 07/17/24 05:50 Dose: 1,000 mls/hr Documented By: Metoclopramide HCl (Metoclopramide 10 Mg/2 Ml Inj) 10 mg IV NOW ONE Stop: 07/17/24 05:38 Last Admin: 07/17/24 05:39 Dose: 10 mg Documented By: Vital Signs Vital signs: Vital Signs - 8 hr 07/17/24 05:11 07/17/24 07:36 Temperature 98.5 F Pulse Rate 114 H 112 H Respiratory Rate 18 20 Blood Pressure 151/106 H 140/75 Pulse Oximetry 97 99 Oxygen Delivery Method Room Air <Charlene Brooks MD - Last Filed: 07/17/24 08:26> Orders Ordered: Heparin Sodium (Porcine) (Heparin 5,000 Unit/Ml Vial) 5,000 unit SUBCUT BID PENDING SALE TO [facility] Last Admin: 07/17/24 10:19 Dose: 5,000 unit Documented By: Hydromorphone HCl (Hydromorphone 0.5 Mg Inj) 0.5 mg IV Q1H PRN PRN Reason: Pain, Severe (7-10) Last Admin: 07/17/24 15:40 Dose: 0.5 mg Documented By: AMEYA Dextrose/Sodium Chloride (Dextrose 5%-0.9% Ns) 1,000 mls @ 100 mls/hr IV CONT ALEXEI Last Admin: 07/17/24 10:20 Dose: 100 mls/hr Documented By: Naloxone HCl (Naloxone 0.4 Mg/Ml Vial) 0.2 mg IV Q2MIN PRN PRN Reason: Opiate Reversal Oxycodone HCl (Oxycodone Ir 10 Mg Tablet) 10 mg PO Q3HR PRN PRN Reason: Pain, Severe (7-10) Last Admin: 07/17/24 15:09 Dose: 10 mg Documented By: AMEYA Discontinued Medications Hydromorphone HCl (Hydromorphone 0.5 Mg Inj) 0.5 mg IV NOW ONE Stop: 07/17/24 05:37 Last Admin: 07/17/24 05:39 Dose: 0.5 mg Documented By: Hydromorphone HCl (Hydromorphone 0.5 Mg Inj) 0.5 mg IV NOW ONE Stop: 07/17/24 07:32 Last Admin: 07/17/24 07:34 Dose: 0.5 mg Documented By: RUBEN Hydromorphone HCl (Hydromorphone 0.5 Mg Inj) 0.5 mg IV Q2H PRN PRN Reason: Pain, Severe (7-10) Last Admin: 07/17/24 13:03 Dose: 0.5 mg Documented By: Admin: 07/17/24 10:19 Dose: 0.5 mg Documented By: Sodium Chloride (Normal Saline 0.9%) 1,000 mls @ 1,000 mls/hr IV BOLUS ONE Stop: 07/17/24 06:43 Last Infusion: 07/17/24 06:41 Dose: Infused Documented By: Admin: 07/17/24 05:50 Dose: 1,000 mls/hr Documented By: Metoclopramide HCl (Metoclopramide 10 Mg/2 Ml Inj) 10 mg IV NOW ONE Stop: 07/17/24 05:38 Last Admin: 07/17/24 05:39 Dose: 10 mg Documented By: Vital Signs Vital signs: Vital Signs - 8 hr 07/17/24 05:11 07/17/24 07:36 Temperature 98.5 F Pulse Rate 114 H 112 H Respiratory Rate 18 20 Blood Pressure 151/106 H 140/75 Pulse Oximetry 97 99 Oxygen Delivery Method Room Air MDM - Abdominal Pain <Aaron Manzanares MD - Last Filed: 07/17/24 15:58> Lab Data Attestation: I reviewed the patient's lab results. Lab results narrative: White blood cell count 74108, hemoglobin 15, platelets 180649. Basic metabolic panel unremarkable again. T bili 1.8 now elevated, was normal on previous visit. Lipase 1311 was normal on previous visit. 07/17/24 05:35 07/17/24 05:35 Labs: Lab Results 07/17/24 Range/Units 05:35 WBC 11.7 H (4.5-11.0) X10^3/uL RBC 4.65 (4.5-5.9) X10^6/uL Hgb 15.0 (13.5-17.5) g/dL Hct 43.0 (41-53) % MCV 92.6 (80-100) fL MCH 32.2 (26-34) PG MCHC 34.7 (30-36) % RDW 13.6 (11.6-14.8) % Plt Count 201 (150-400) X10^3/uL Neut % (Auto) 87.2 H (50-75) % Lymph % (Auto) 5.6 L (25-40) % [place] % (Auto) 6.8 (3-14) % Eos % (Auto) 0.1 L (2-4) % Baso % (Auto) 0.3 (0-2) % Neut # (Auto) 03713 H (9637-0549) /uL Lymph # (Auto) 700 L (6578-6500) /uL [place] # (Auto) 800 (0-900) /uL Eos # (Auto) 0 (0-450) /uL Baso # (Auto) 0 (0-100) /uL Sodium 134 L (137-145) mmol/L Potassium 3.8 (3.4-5.1) mmol/L Chloride 103 (98-107) mmol/L Carbon Dioxide 20 L (22-32) mmol/L BUN 16 (9-20) mg/dL Creatinine 0.94 (0.66-1.25) mg/dL Estimated GFR > 60 (>60) mL/min BUN/Creatinine Ratio 17.0 (6-22) Glucose 131 H (70-100) mg/dL Calcium 9.0 (8.4-10.2) mg/dL Total Bilirubin 1.8 H (0.2-1.3) mg/dL AST 39 (17-59) IU/L ALT 27 (<50) IU/L Alkaline Phosphatase 79 (38-126) U/L Total Protein 7.4 (6.3-8.2) g/dL Albumin 4.5 (3.5-5.0) g/dL Globulin 2.9 (1.7-4.1) g/dL Albumin/Globulin Ratio 1.6 (1.0-2.8) Lipase 1311 H D (23-300) U/L Ethyl Alcohol < 10 ( - 10) mg/dL MDM Narrative Medical decision making narrative: 39-year-old male with ongoing alcohol abuse, previously evaluation a few hours ago preferred to try treatment as an outpatient, CT at that time showed some inflammatory change to pancreas, and 2 cm pancreatic pseudocyst, patient received IV fluids and IV antiemetics, felt better, then he wanted to go home on oral treatments with close follow up, says that he is avoiding alcohol since discharge. A few hours later he returns with abdominal pain and nausea and vomiting. Denies interim alcohol use. Afebrile again, sinus tachycardia noted. Some abdominal tenderness mid upper abdominal exam. IV fluid, IV Dilaudid. Repeat labs pending White blood cell count 08681, hemoglobin normal. T bili 1.8 was normal before. Other LFTs unremarkable still. Lipase was normal on previous visit now 1311 noted. MRI not available at this hour, however we will pursue ultrasound to look for stone, no ERCP available here, if imaging studies rule out ductal stone then likely can be admitted here for alcoholic pancreatitis, pseudocyst is quite small, not drainable size dimension on prior imaging study CT a few hours ago. Patient expressed understanding. Keep NPO for now. Ultrasound right upper quadrant abdomen ordered. 07, right upper quadrant abdominal ultrasound pending. Interval lipase elevation and new T bili elevation, concern for common bile duct obstruction, although history most consistent with alcoholic pancreatitis, recent CT scan noted last night showed mild pancreatic inflammation and small 2 cm pseudocyst when he declined admission on 1st visit. Signed out to oncoming ED shift physician Dr. Brooks. Dr. Brooks -ultrasound shows no ductal dilation. Patient accepted for admission by daytime hospitalist. <Charlene Brooks MD - Last Filed: 07/17/24 08:26> Lab Data Labs: Lab Results 07/17/24 Range/Units 05:35 WBC 11.7 H (4.5-11.0) X10^3/uL RBC 4.65 (4.5-5.9) X10^6/uL Hgb 15.0 (13.5-17.5) g/dL Hct 43.0 (41-53) % MCV 92.6 (80-100) fL MCH 32.2 (26-34) PG MCHC 34.7 (30-36) % RDW 13.6 (11.6-14.8) % Plt Count 201 (150-400) X10^3/uL Neut % (Auto) 87.2 H (50-75) % Lymph % (Auto) 5.6 L (25-40) % [place] % (Auto) 6.8 (3-14) % Eos % (Auto) 0.1 L (2-4) % Baso % (Auto) 0.3 (0-2) % Neut # (Auto) 32999 H (3058-1319) /uL Lymph # (Auto) 700 L (4196-2298) /uL [place] # (Auto) 800 (0-900) /uL Eos # (Auto) 0 (0-450) /uL Baso # (Auto) 0 (0-100) /uL Sodium 134 L (137-145) mmol/L Potassium 3.8 (3.4-5.1) mmol/L Chloride 103 (98-107) mmol/L Carbon Dioxide 20 L (22-32) mmol/L BUN 16 (9-20) mg/dL Creatinine 0.94 (0.66-1.25) mg/dL Estimated GFR > 60 (>60) mL/min BUN/Creatinine Ratio 17.0 (6-22) Glucose 131 H (70-100) mg/dL Calcium 9.0 (8.4-10.2) mg/dL Total Bilirubin 1.8 H (0.2-1.3) mg/dL AST 39 (17-59) IU/L ALT 27 (<50) IU/L Alkaline Phosphatase 79 (38-126) U/L Total Protein 7.4 (6.3-8.2) g/dL Albumin 4.5 (3.5-5.0) g/dL Globulin 2.9 (1.7-4.1) g/dL Albumin/Globulin Ratio 1.6 (1.0-2.8) Lipase 1311 H D (23-300) U/L Ethyl Alcohol < 10 ( - 10) mg/dL MDM Narrative Medical decision making narrative: 39-year-old male with ongoing alcohol abuse, previously evaluation a few hours ago preferred to try treatment as an outpatient, CT at that time showed some inflammatory change to pancreas, in 2 cm pancreatic pseudocyst, hospitalist, patient received IV fluids and IV antiemetics, felt better, then wanted to go home on oral treatments with close follow up, avoiding alcohol. A few hours later he returns with abdominal pain and nausea and vomiting. Denies interim alcohol use. Afebrile again, sinus tachycardia noted. Some abdominal tenderness mid upper abdominal exam. IV fluid, IV Dilaudid. Repeat labs pending White blood cell count 12931, hemoglobin normal. T bili 1.8 was normal before. Other LFTs unremarkable still. Lipase was normal on previous visit now 1311 noted. MRI not available at this hour, however we will pursue ultrasound to look for stone, no ERCP available here, if imaging studies rule out ductal stone then likely can be admitted here for alcoholic pancreatitis, pseudocyst is quite small, not drainable size dimension on prior imaging study CT a few hours ago. Patient expressed understanding. Keep NPO for now. Ultrasound right upper quadrant abdomen ordered. 714, right upper quadrant abdominal ultrasound pending. Interval balance back with lipase elevation and new T bili elevation, concern for common bile duct obstruction, although history most consistent with alcoholic pancreatitis, recent CT scan noted last night showed mild pancreatic inflammation and small 2 cm pseudocyst when he declined admission 1st visit. Signed out to oncoming ED shift physician Dr. Brooks. Dr. Brooks -ultrasound shows no ductal dilation. Patient accepted for admission by daytime hospitalist. Discharge Plan Departure Patient Disposition: Admitted as Observation Clinical Impression: Nausea with vomiting, Pancreatitis, Pancreatic pseudocyst Admit Date/Time: 07/17/24 08:24 Admit Provider: Ayush Meraz
[2024-07-17] MEDS: HYDROMORPHONE 0.5 MG INJ IV ×8 (05:39→23:10)
[2024-07-17] MEDS: METOCLOPRAMIDE 10 MG/2 ML INJ IV (05:39)
[2024-07-17 05:46] LABS: Add Manual Diff / Slide Review NO; Basophils Absolute Auto 0 /uL (0-100); Basophils Percent Auto 0.3 % (0-2); Eosinophils Absolute Auto 0 /uL (0-450); Eosinophils Percent Auto 0.1 % (2-4); Lymphocytes Absolute Auto 700 /uL (1100-4500); Lymphocytes Percent Auto 5.6 % (25-40); Mean Corpuscular HGB Conc 34.7 % (30-36); Mean Corpuscular Hemoglobin 32.2 PG (26-34); Mean Corpuscular Volume 92.6 fL (80-100); Monocytes Absolute Auto 800 /uL (0-900); Monocytes Percent Auto 6.8 % (3-14); Neutrophils Absolute Auto 10200 /uL (1500-7000); Neutrophils Percent Auto 87.2 % (50-75); Platelet Count 201 X10^3/uL (150-400); Red Blood Cell Count 4.65 X10^6/uL (4.5-5.9); Red Cell Distribution Width 13.6 % (11.6-14.8); White Blood Cell Count 11.7 X10^3/uL (4.5-11.0)
[2024-07-17] MEDS: SODIUM CHLORIDE 0.9% 1,000 ML 1000 ML IV (05:50)
[2024-07-17 05:57] LABS: Alanine Aminotransferase 27 IU/L (<50); Albumin 4.5 g/dL (3.5-5.0); Albumin Globulin Ratio 1.6 (1.0-2.8); Alkaline Phosphatase 79 U/L (38-126); Aspartate Aminotransferase 39 IU/L (17-59); Bilirubin Total 1.8 mg/dL (0.2-1.3); Blood Urea Nitrogen 16 mg/dL (9-20); Carbon Dioxide 20 mmol/L (22-32); Chloride 103 mmol/L (98-107); Estimated Glomerular Filt Rate > 60 mL/min (>60); Ethanol (ETOH) < 10 mg/dL; Globulin 2.9 g/dL (1.7-4.1); Glucose 131 mg/dL (70-100); HEMOLYSIS < 15 (0-50); Lipase 1311 U/L (23-300); Potassium 3.8 mmol/L (3.4-5.1); Sodium 134 mmol/L (137-145); Total Protein 7.4 g/dL (6.3-8.2)
--- NOTE | 2024-07-17 06:05 | DI.US.S_ITS ---
PROCEDURE: US ABDOMEN LIMITED INDICATIONS: abd pain, now Lipase elev, Tbili 1.8 was normal TECHNIQUE: Real-time scanning was performed of the abdominal and retroperitoneal organs, with image documentation. COMPARISON: [facility], , US ABDOMEN LIMITED, 09/28/2023, 9:16. FINDINGS: Liver: The liver measures 15.0 cm in length and demonstrates diffusely increased echogenicity. Gallbladder: No gallstones. No wall thickening. No pericholecystic edema. Negative sonographic Valdivia's sign. Biliary ducts: Intrahepatic bile ducts are non-dilated. Extrahepatic bile duct caliber measures 2.7 mm. Normal is 6-7 mm or less in diameter, or 10 mm or less post-cholecystectomy. Pancreas: Visualized portions of the pancreas are sonographically normal. Miscellaneous: No free abdominal fluid. IMPRESSION: 1. Increased hepatic echogenicity noted likely related to fatty infiltration of the liver but other sources of hepatocellular disease cannot be excluded. 2. No cholelithiasis or findings to suggest choledocholithiasis or acute cholecystitis. Dictated by: Smitha Romano M.D. on 07/17/2024 at 8:12 Approved by: Smitha Romano M.D. on 07/17/2024 at 8:13
--- NOTE | 2024-07-17 06:45 | PC.NURSE ---
Nausea vomiting due to abdominal pain. Pt returns after visit earlier when it was recommended for pt to stay to help keep pain and n/v controlled.
[2024-07-17 07:36] VITALS: BP 140/75; PULSE 112; RESP 20; O2SAT 99
[2024-07-17 07:37] VITALS: BP 140/95; PULSE 106; O2SAT 98
[2024-07-17 08:37] VITALS: BMI 26.9
[2024-07-17 09:05] VITALS: BP 148/98; PULSE 104; RESP 18; TEMP 36.8; O2SAT 100
--- NOTE | 2024-07-17 09:21 | P.HP_ITS ---
History of Present Illness History of Present Illness Date Patient Seen: 07/17/24 Time Patient Seen: 10:21 Chief complaint: pancreatitis Narrative: Patient was a 39-year-old male with a history of gout and alcohol use disorder. He drinks about 5 drinks a day. He presented to the ED yesterday with 3 days of abdominal pain and was diagnosed with pancreatitis. He was sent home with oral pain medications and failed to improve her have good pain control. He denies any vomiting, or hematemesis. No abdomen bloating, constipation or diarrhea. No blood per rectum. He denies any withdrawal symptoms. He also denies any issues with dyspnea or chest pain. No history of palpitations. He does also have a history of hypertension, and had a BP of 148/98. He lives in [place], with his . Lipase 1311 (AST 39) T bili 1.8 Abdomen ultrasound: 1. Increased hepatic echogenicity noted likely related to fatty infiltration of the liver but other sources of hepatocellular disease cannot be excluded. 2. No cholelithiasis or findings to suggest choledocholithiasis or acute cholecystitis. CTA abdomen: 1. Decreased inflammatory change about the tail the pancreas. 2. Cystic area at the distal tail the pancreas measuring 2.1 cm. This could represent a small pseudocyst. -Recommend continued imaging surveillance. 3. Hepatic steatosis. [facility] Medical History Elevated LFTs (~11/04/21) Hyperlipidemia, mixed Alcohol use disorder Hypertension Gout Herpes simplex (06/02/11) Hypertriglyceridemia Anxiety (05/21/11) Family History Grandfather CVA (cerebral infarction) Grandmother Age: 88 Diabetes mellitus Hypertension Social History household members: spouse and family Smoking Status: Former smoker Tobacco: How many years used: 10 Smokeless tobacco user: other (Nicotine vape (current)) alcohol intake: current substance use type: marijuana (CBD and low THC ) Meds Home Medications and Allergies Home Medications Medication Instructions Recorded Confirmed Type prednisone 20 mg tablet 20 mg PO DAILY #15 tabs 07/05/23 09/28/23 Rx colchicine 0.6 mg tablet 0.6 mg PO DAILY #20 tabs 11/09/23 11/18/23 Rx lisinopril 10 mg tablet 10 mg PO DAILY #90 tabs 02/14/24 Rx atorvastatin 20 mg tablet 20 mg PO ONCE PM #30 tabs 04/25/24 Rx amitriptyline 50 mg tablet 50 mg PO ONCE PM #90 tabs 05/21/24 Rx allopurinol 100 mg tablet 100 mg PO DAILY #90 tabs 07/09/24 Rx oxycodone-acetaminophen 5 mg-325 1 tab PO Q6H PRN pain #14 tabs 07/17/24 Rx mg tablet pantoprazole 40 mg tablet,delayed 40 mg PO DAILY #30 tabs 07/17/24 Rx release Allergies Allergy/AdvReac Type Severity Reaction Status Date / Time cat dander [CAT DANDER] Allergy Intermediate eyes Verified 11/18/23 11:04 watery, gets itchy Review of Systems Review of Systems Narrative: All else reviewed and otherwise unremarkable except as noted in the history and physical. Exam Vital Signs (past 8 hours): - 07/17/24 05:11 07/17/24 07:36 07/17/24 07:37 Temperature 98.5 F Pulse Rate 114 H 112 H Respiratory Rate 18 20 Blood Pressure 151/106 H 140/75 140/95 H Pulse Oximetry 97 99 Oxygen Delivery Method Room Air 07/17/24 07:37 07/17/24 09:05 Temperature 98.2 F Pulse Rate 106 H 104 H Respiratory Rate 18 Blood Pressure 148/98 H Pulse Oximetry 98 100 Oxygen Delivery Method Oxygen Delivery Method Room Air Narrative Exam Narrative: NAD, alert and oriented, fluent speech, calm. Many tattoos. Normocephalic skull, EOMI, anicteric sclera, symmetric pupils. Oropharynx unremarkable, no droop. Neck supple, midline trachea, no adenopathy. Lungs clear, normal rate and effort. Heart regular, no murmur gallop or rub. Abdomen is soft, non distended and diffusely tender but most tender in the epigastric region, there is no guarding or rebound. Extremities are free of edema. Skin is free of rash or lesions. Joints are not swollen or deformed. Judgment appears to be normal. Objective Imaging Multiple studies:: Radiologist's impression: Abdomen ultrasound: . Increased hepatic echogenicity noted likely related to fatty infiltration of the liver but other sources of hepatocellular disease cannot be excluded. 2. No cholelithiasis or findings to suggest choledocholithiasis or acute cholecystitis. CT abdomen and pelvis: 1. Decreased inflammatory change about the tail the pancreas. 2. Cystic area at the distal tail the pancreas measuring 2.1 cm. This could represent a small pseudocyst. -Recommend continued imaging surveillance. 3. Hepatic steatosis. Labs 07/17/24 05:35 07/17/24 05:35 Labs: Laboratory Results - last 24 hr 07/17/24 05:35 WBC 11.7 H RBC 4.65 Hgb 15.0 Hct 43.0 MCV 92.6 MCH 32.2 MCHC 34.7 RDW 13.6 Plt Count 201 Neut % (Auto) 87.2 H Lymph % (Auto) 5.6 L Barry % (Auto) 6.8 Eos % (Auto) 0.1 L Baso % (Auto) 0.3 Neut # (Auto) 50197 H Lymph # (Auto) 700 L Barry # (Auto) 800 Eos # (Auto) 0 Baso # (Auto) 0 Sodium 134 L Potassium 3.8 Chloride 103 Carbon Dioxide 20 L BUN 16 Creatinine 0.94 Estimated GFR > 60 BUN/Creatinine Ratio 17.0 Glucose 131 H Calcium 9.0 Total Bilirubin 1.8 H AST 39 ALT 27 Alkaline Phosphatase 79 Total Protein 7.4 Albumin 4.5 Globulin 2.9 Albumin/Globulin Ratio 1.6 Lipase 1311 H D Ethyl Alcohol < 10 Assessment & Plan Assessment & Plan narrative: 1. Acute pancreatitis, alcohol-induced. Present on admission and active. 2. Elevated bilirubin and steatohepatitis without any evidence of biliary obstruction. Present on admission and active. 3. Distal pancreas tail cyst, present on admission and active. 4. Alcohol use disorder, present on admission and active. 5. Hypertension, present on admission and active. 6. Gout, present on admission and stable. Plan: -treat pancreatitis with NPO, IV fluids and analgesics. -monitor liver function tests. -monitor for evidence of alcohol withdrawal. -resume blood pressure medications. Time-Based Coding :: 40 min spent with patient and on the chart (including review of chart, obtaining history, exam, reviewing outside data, placing orders, documenting exam and treatment plan, and counseling patient) on 07/17. Quality MIPS - Admit I confirm the patient?s Advance Care Plan is present, Code status is documented, Surrogate decision maker is in patient?s record [If Yes, STOP here]: Yes [facility] - Meds 'Current medications' to include all prescriptions, [id number] products, herbals, cannabis/cannabidiol products, and vitamin/mineral/dietary (nutritional) supplements. I have utilized all available resources to obtain, update, or review the patient?s current medications. [If Yes, STOP here]: Yes
[2024-07-17] MEDS: HEPARIN 5,000 UNIT/ML VIAL 5000 UNIT SUBCUT ×2 (10:19→21:36)
[2024-07-17] MEDS: DEXTROSE 5%-0.9% NS 1,000 ML 100 ML IV ×2 (10:20→20:04)
[2024-07-17] MEDS: OXYCODONE IR 10 MG TABLET PO ×2 (15:09→21:35)
[2024-07-17 20:00] VITALS: BP 124/93; PULSE 113; RESP 18; TEMP 37.1; O2SAT 98
[2024-07-17] MEDS: ONDANSETRON 4 MG/2 ML INJ IV (20:03)
[2024-07-18] MEDS: OXYCODONE IR 10 MG TABLET PO ×4 (01:00→12:41)
[2024-07-18] MEDS: DEXTROSE 5%-0.9% NS 1,000 ML 100 ML IV (06:19)
[2024-07-18] MEDS: ONDANSETRON 4 MG/2 ML INJ IV (07:38)
[2024-07-18] MEDS: HEPARIN 5,000 UNIT/ML VIAL 5000 UNIT SUBCUT (07:38)
[2024-07-18 09:00] VITALS: BP 115/82; PULSE 125; RESP 17; TEMP 36.7; O2SAT 97
[2024-07-18] MEDS: IBUPROFEN 400 MG TABLET 800 MG PO (12:41)
--- NOTE | 2024-07-18 13:17 | P.DS_ITS ---
History of Present Illness History of Present Illness Date Patient Seen: 07/18/24 Time Patient Seen: 13:17 Chief complaint: pancreatitis Narrative: Per admitting provider, Patient was a 39-year-old male with a history of gout and alcohol use disorder. He drinks about 5 drinks a day. He presented to the ED yesterday with 3 days of abdominal pain and was diagnosed with pancreatitis. He was sent home with oral pain medications and failed to improve her have good pain control. He denies any vomiting, or hematemesis. No abdomen bloating, constipation or diarrhea. No blood per rectum. He denies any withdrawal symptoms. He also denies any issues with dyspnea or chest pain. No history of palpitations. He does also have a history of hypertension, and had a BP of 148/98. He lives in [place], with his . Lipase 1311 (AST 39) T bili 1.8 Abdomen ultrasound: 1. Increased hepatic echogenicity noted likely related to fatty infiltration of the liver but other sources of hepatocellular disease cannot be excluded. 2. No cholelithiasis or findings to suggest choledocholithiasis or acute cholecystitis. CTA abdomen: 1. Decreased inflammatory change about the tail the pancreas. 2. Cystic area at the distal tail the pancreas measuring 2.1 cm. This could represent a small pseudocyst. -Recommend continued imaging surveillance. 3. Hepatic steatosis. Discharge Providers Provider Date of admission: 07/17/24 08:24 Discharge Date: 07/20/24 Primary care physician: Zayra Sanchez DO Discharge provider: Jason Armando DO Summary Hospital Course Discharge Diagnosis: 1. Acute pancreatitis, alcohol-induced. Present on admission and active. 2. Elevated bilirubin and steatohepatitis without any evidence of biliary obstruction. Present on admission and active. 3. Distal pancreas tail cyst, present on admission and active. 4. Alcohol use disorder, present on admission and active. 5. Hypertension, present on admission and active. 6. Gout, present on admission and stable. Hospital Course: This is a 39 year old male with PMH of EtOH use, HTN, gout who was admitted with acute alcoholic pancreatitis. He improved initially with bowel rest, IV fluids and pain medications. The following day his diet was able to be quickly advanced, and his symptoms were controlled with oral medications only. He was discharged more quickly than anticipated given his rapid improvement. He was counseled on alcohol cessation and advised that cutting down or stopping alcohol will help to prevent future episodes. At follow up with PCP, consider repeat imaging given possible cysts as noted in HPI depending on symptoms. Time Spent with Patient Time spent: Less than 30 minutes Exam Vital Signs (past 8 hours): - 07/18/24 07:40 07/18/24 09:00 Temperature 98.0 F Pulse Rate 125 H Respiratory Rate 17 Blood Pressure 115/82 Pulse Oximetry 97 Oxygen Delivery Method Room Air Oxygen Flow Rate 0 Oxygen Delivery Method Room Air Oxygen Flow Rate 0 Narrative Exam Narrative: NAD, alert and oriented, fluent speech, calm. Many tattoos. Lungs clear, normal rate and effort. Heart regular, no murmur gallop or rub. Abdomen is soft, non distended, mild tenderness Extremities are free of edema. Skin is free of rash or lesions. Joints are not swollen or deformed. Judgment appears to be normal. Objective Labs 07/17/24 05:35 07/17/24 05:35 [facility] Medical History Elevated LFTs (~11/04/21) Hyperlipidemia, mixed Alcohol use disorder Hypertension Gout Herpes simplex (06/02/11) Hypertriglyceridemia Anxiety (05/21/11) Family History Grandfather CVA (cerebral infarction) Grandmother Age: 88 Diabetes mellitus Hypertension Social History household members: spouse and family Smoking Status: Former smoker Tobacco: How many years used: 10 Smokeless tobacco user: other (Nicotine vape (current)) alcohol intake: current substance use type: marijuana (CBD and low THC ) Discharge Plan Discharge Plan Patient Disposition: Home Provider Discharge Comment: You were admitted to the hospital with pancreatitis, or inflammation of your pancreas, due to alcohol. Keep in mind this can flare up again with continued alcohol use, so try to cut down as much as possible. Over the course of the next few days, slowly increase your oral intake, try to stick with a low fat diet until no longer requiring pain medications. Discharge orders & Medications Prescriptions: New oxycodone 5 mg tablet 5 mg PO Q4H PRN (Reason: pain) 7 Days Qty: 30 0RF ondansetron 4 mg tablet,disintegrating 4 mg PO Q8H PRN (Reason: nausea and vomiting) 30 Days Qty: 30 0RF Continued colchicine 0.6 mg tablet 0.6 mg PO DAILY Qty: 20 0RF Rx Instructions: double dose first day then 1 tab daily until gout flare is resolved, If not improving/resolved in 5ddays please return to clinic for evaluation lisinopril 10 mg tablet 10 mg PO DAILY MDD 10mg Qty: 90 1RF Rx Instructions: Take one tablet by mouth daily. atorvastatin 20 mg tablet 20 mg PO ONCE PM Qty: 30 1RF amitriptyline 50 mg tablet 50 mg PO ONCE PM MDD 50mg Qty: 90 1RF Rx Instructions: Take one tablet by mouth at bedtime(takes at 1600) allopurinol 100 mg tablet 100 mg PO DAILY Qty: 90 0RF prednisone 20 mg tablet 20 mg PO DAILY Qty: 15 0RF Patient Comments: takes when he feels a gout flare coming pantoprazole 40 mg tablet,delayed release (DR/EC) 40 mg PO DAILY Qty: 30 0RF Discontinued oxycodone-acetaminophen 5-325 mg tablet 1 tab PO Q6H PRN (Reason: pain) Qty: 14 0RF Follow up/Referrals: Zayra Sanchez, [Primary Care Provider] - Diet/Activity/Treatments Diet: Diet as Tolerated and Low-fat Activity: As tolerated, no restrictions Visit Report/Discharge Packet Instructions: Acute Pancreatitis, Fat-Restricted Diet, DI for Pancreatitis, DI for Nausea -- Adult, DI for Prescription Opioid Use Stand Alone Forms: Patient Portal/API, Stroke Signs & Symptoms Discharge Data Primary Care Provider: Zayra Sanchez Attending Provider: Ayush Meraz Admit Date/Time: 07/17/24 08:24
--- NOTE | 2024-07-18 13:48 | CM.DANOTE ---
Initial DCP Assessment Visit Note Reviewed EMR and team rounds for pt's medical status and updates. Pt lives independently at baseline in his own home with his and children here in [place]. His is at bedside and is in the process of preparing for d/c home, he has been medically cleared and is now stable. Pt denied any CM assistance/resource needs at this time. Payor: [facility] PCP: Dr. Zayra Sanchez Pt is a 39 year-old M who presented twice to the ED yesterday for c/o 3-days of abdominal pain, nausea, and vomiting. Pt has a hx of alcohol use disorder, drinks approx. 5-drinks per day. He was initially sent home after he went to the ED the first time with oral pain meds, however he was unable to stablize as OP and returned a few hours later for further tx. He was dx with alcohol-induced acute pancreatitis. He was placed in OBS, made NPO, and was started on IV fluids and pain meds. Today pt was feeling much improved, was able to tolerate advancing his diet, and was discharged home. No further needs indicated for assistance. Discharge Planning/Care Management CM Discharge Assessment Start: 07/18/24 13:42 Freq: Status: Active Protocol: Document 07/18/24 13:43 DPL (Rec: 07/18/24 13:48 DPL [id number]) Discharge Planning Assessment Assigned Time Broker SUKUMAR Sifuentes Advance Directives? No History Provided By Medical Record Expected Length of Stay 1 Has Patient been admitted in last 30 No days? Prior Living Arrangements Apartment/Condo Household Members spouse,family Type of transporation used prior to Drives own vehicle admit Independent with ADL's Yes Is patient alert and oriented? Yes Comment N/A Comment No identified d/c needs during this admission. Barriers to Discharge No Discharge Plan Home Transportation Arrangement Spouse Referrals Initiated None needed Review Status In Process Please Provide Date Initial DC 07/18/24 Assessment Was Performed
--- NOTE | 2024-07-18 14:41 | PC.NURSE ---
Discharge: Pt did a trial of clear liquid diet. Tolerated same with out problems. MD made aware as pt would like to go home as soon as poss. MD came down to see patient and reviewed d/c instructions with him. Given discharge packet and reviewed. Rx has been esent. Questions answered. Pt d/c to home via auto with friend. Voiced no concerns.
== END 2024-07-18 14:35 | disposition home or self-care (01) ==
LOC: ED 07:17 → AC 08:26
PROVIDERS: Emergency Medicine; Admitting Provider Hospitalist; Emergency Provider Emergency Medicine; Family Provider Family Medicine; PCP Family Medicine; Referring Provider Emergency Medicine; Visit Provider Hospitalist
DX: K85.20 Alcohol induced acute pancreatitis without necrosis or infection (principal); R93.5 Abnormal findings on diagnostic imaging of other abdominal regions, including retroperitoneum; K76.0 Fatty (change of) liver, not elsewhere classified; I10 Essential (primary) hypertension; M10.9 Gout, unspecified; F12.90 Cannabis use, unspecified, uncomplicated; Z72.0 Tobacco use; K85.90 Acute pancreatitis without necrosis or infection, unspecified; K86.3 Pseudocyst of pancreas
CPT/HCPCS: 36415; 74177; 76705; 80053; 80320; 81003; 81015; 83690; 85025; 93005; 93010; 96361; 96372; 96374; 96375; 96376; 99284; G0378; J1171; J1644; J2270; J2405; J2470; J2765; Q9967

== ENCOUNTER → 2024-10-01 07:51 | Outpatient (CLI) | payer OTHER, SELFPAY ==
[2024-10-01 08:22] LABS: Hematocrit 41.8 % (41-53); Hemoglobin 14.5 g/dL (13.5-17.5); Mean Corpuscular HGB Conc 34.6 % (30-36); Mean Corpuscular Hemoglobin 31.9 PG (26-34); Mean Corpuscular Volume 92.2 fL (80-100); Platelet Count 223 X10^3/uL (150-400); Red Blood Cell Count 4.54 X10^6/uL (4.5-5.9); Red Cell Distribution Width 12.4 % (11.6-14.8); White Blood Cell Count 5.6 X10^3/uL (4.5-11.0)
[2024-10-01 08:26] LABS: Hemoglobin A1C% w Est Avg Glu 4.8 % (4.0-6.0)
[2024-10-01 08:38] LABS: Alanine Aminotransferase 37 IU/L (<50); Albumin 4.7 g/dL (3.5-5.0); Albumin Globulin Ratio 1.8 (1.0-2.8); Alkaline Phosphatase 90 U/L (38-126); Aspartate Aminotransferase 48 IU/L (17-59); BUN Creatinine Ratio 15.5 (6-22); Bilirubin Total 0.7 mg/dL (0.2-1.3); Blood Urea Nitrogen 17 mg/dL (9-20); Calcium 9.8 mg/dL (8.4-10.2); Carbon Dioxide 26 mmol/L (22-32); Chloride 99 mmol/L (98-107); Cholesterol 229 mg/dL (140-199); Estimated Glomerular Filt Rate > 60 mL/min (>60); Globulin 2.6 g/dL (1.7-4.1); Glucose 107 mg/dL (70-100); HDL Cholesterol 60 mg/dL (40-60); HEMOLYSIS < 15 (0-50); Lipase 63 U/L (23-300); Potassium 4.8 mmol/L (3.4-5.1); Sodium 135 mmol/L (137-145); Total Protein 7.3 g/dL (6.3-8.2); Triglycerides 409 mg/dL (35-150); Uric Acid 6.6 mg/dL (3.5-8.5)
[2024-10-01 15:23] LABS: Creatinine Urine Random 334.55 mg/dL
[2024-10-01 15:25] LABS: Microalbumin Urine Random 5.8 mg/dL (0-1.6)
== END ==
PROVIDERS: Family Provider Family Medicine; PCP Family Medicine; Referring Provider Family Medicine; Visit Provider Family Medicine
DX: K85.90 Acute pancreatitis without necrosis or infection, unspecified (principal); R79.89 Other specified abnormal findings of blood chemistry; Z83.3 Family history of diabetes mellitus; R73.9 Hyperglycemia, unspecified; I10 Essential (primary) hypertension; K86.3 Pseudocyst of pancreas; R74.01 Elevation of levels of liver transaminase levels
CPT/HCPCS: 36415; 80053; 80061; 82043; 82570; 83036; 83690; 84550; 85027